=== PATIENT | male | born 1950 | race Caucasian/White ===

== ENCOUNTER → 2016-10-04 | Outpatient (CLI) | payer BC ==
[~2016-10-04] MED LIST: ALL300 PO; CLB/200 PO; DICL1GEL28 TOP; LISI-461 PO; METR0.7527 TOP
[2016-10-04 13:51] VITALS: BP 151/95; PULSE 88; TEMP 36.9; O2SAT 96
--- NOTE | 2016-10-04 16:42 | Radiation Oncology Follow-Up ---
Radiation Oncology Follow-Up Date of Visit Oct 04, 2016. Reason For Visit Mr. Tapia returns for regularly scheduled annual follow-up visit following seed implantation as monotherapy for his low risk prostate cancer. Radiation Completion Date seed implant as monotherapy on 03-11-2014 History of Present Illness Mr. Tapia is a 65-year-old male who presented with a bump in his prostate- specific antigen up to 5.4. Ultrasound-guided biopsies on 10/21/2013 confirmed an adenocarcinoma the prostate Empire grade 3+3 in all core biopsies taken. The patient at that time discussed all treatment options including surgery and radiation. Ultimately he opted to proceed with a transperineal prostate brachytherapy with real-time planning. This was performed on 03/11/2014. A total of 19 needles were used and 61 Cesium 131 seeds implanted for a dose of 115 Gy. The patient was seen for a one-month follow-up and was doing well with an excellent AUA the range of 3-5. His prostate-specific antigen responded and was 1.5 on 06/30/2014, 0.642 on 12/15/2014, 0.3821 10/01/2015. He is been doing well over this past year. He had steady improvement in his urinary status. His AUA score was 2. He completed expanded prostate cancer index composite for clinical practice and gave a score of 0 of 12 in urinary incontinence symptoms. He gave a score of 0 of 12 in urinary irritation symptoms. He gave a score of 0 of 12 and bowel symptoms. He gave a score of one of 12 and sexual symptoms. He gave a score of 0 of 12 in hormonal vitality symptoms. His total was 1 of 60. Interim History Since his last visit on 10/01/2015 the patient is continued to do well. His urination remains excellent with an AUA score of 3. He also completed EPIC-CP and received an overall prostate cancer quality of life score of 3 out of 60. Patient did have a repeat colonoscopy this summer as routine surveillance. Unfortunately he had post-procedure complications that required additional follow-up. Polyps removed on 03/17/2016 were tubular adenomas with no malignancy. Case: [id number]. The patient's bowels have also been moving well since then with no significant diarrhea or constipation and no episodes of rectal bleeding. Allergies Coded Allergies: Ciprofloxacin (Verified Allergy, Unknown, stomach sickness, diarrhea, ) Home Medications Scheduled Allopurinol (Allopurinol), 1 TAB PO QAM Celecoxib (CeleBREX), 200 MG PO AFTERNOON Lisinopril (Zestril), 10 MG PO QAM Metronidazole (Topical) (Metrogel), 1 APPLN TOP HS Scheduled PRN Diclofenac Sod (Voltaren 1% Top Gel), 1 APPLN TOP DAILY PRN for Mild Pain Review of Systems Gastrointestinal: Symptoms: WNL Oral: Symptoms: No Problems Respiratory: Symptoms: WNL Urinary: Symptoms: Nocturia Comments: ncoturia 1 - 2 times Skin: Symptoms: No Problems Physical Exam Vital Signs Date Time Temp Pulse Resp B/P Pulse Ox O2 Delivery O2 Flow Rate FiO2 10/04/16 13:51 36.9 88 20 151/95 96 Pain: Side: Bilateral Patient Pain Scale: 0 - 10 Initial Pain Intensity: 0.0 Fatigue: None General Appearance: WD/WN, no apparent distress Eyes: normal inspection ENT: normal ENT inspection, pharynx normal Neck: supple, no adenopathy Respiratory/Chest: chest non-tender, lungs clear, normal breath sounds Cardiovascular: regular rate, rhythm, no murmur Abdomen: non tender, soft, no organomegaly Anal / Rectum: On digital rectal exam there was no induration or nodularity. There was no rectal mucosal abnormalities appreciated. There was no blood on the examining finger. 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, no motor/sensory deficits, alert, normal mood/affect, oriented x 3 Skin: normal color Lymphatic: no adenopathy Laboratory Studies Test 09/06/16 12:22 10/04/16 14:24 White Blood Count 6.47 K/uL (4.8-10.8) Red Blood Count 4.10 M/uL (4.7-6.1) Hemoglobin 13.1 g/dL (14.0-18.0) Hematocrit 38.6 % (42-52) Mean Corpuscular Volume 94.1 fL (80-100) Mean Corpuscular Hemoglobin 32.0 pg (25-34) Mean Corpuscular Hemoglobin Concent 33.9 g/dl (32-36) Platelet Count 282 K/uL (130-400) Mean Platelet Volume 10.5 fL (7.4-10.4) Neutrophils (%) (Auto) 64.0 % Lymphocytes (%) (Auto) 18.5 % Monocytes (%) (Auto) 11.9 % Eosinophils (%) (Auto) 4.5 % Basophils (%) (Auto) 0.9 % Neutrophils # (Auto) 4.14 K/uL (1.4-6.5) Lymphocytes # (Auto) 1.20 K/uL (1.2-3.4) Monocytes # (Auto) 0.77 K/uL (0.11-0.59) Eosinophils # (Auto) 0.29 K/uL (0-0.5) Basophils # (Auto) 0.06 K/uL (0-0.2) RDW Standard Deviation 46.2 fL (36.4-46.3) RDW Coefficient of Variation 13.4 % (11.5-14.5) Immature Granulocyte % (Auto) 0.2 % Immature Granulocyte # (Auto) 0.01 K/uL (0.00-0.02) Absolute Reticulocyte Count 0.05 10^6/uL (0.02-0.10) Percent Reticulocyte Count 1.3 % (0.5-2.0) Sodium Level 140 mmol/L (136-145) Potassium Level 4.2 mmol/L (3.5-5.1) Chloride Level 106 mmol/L (98-107) Carbon Dioxide Level 26 mmol/L (21-32) Anion Gap 8.0 mmol/L (3-11) Blood Urea Nitrogen 16 mg/dl (7-18) Creatinine 0.96 mg/dl (0.60-1.40) Estimated GFR () 97.1 Estimated GFR (Non- 83.8 BUN/Creatinine Ratio 17.0 (10-20) Random Glucose 92 mg/dl (70-99) Calcium Level 8.9 mg/dl (8.5-10.1) Iron Level 103 mcg/dl (35-175) Total Iron Binding Capacity 250 mcg/dl (250-450) Transferrin 201 mg/dl (200-360) Transferrin % Saturation 37 % (20-50) Ferritin 493.2 ng/ml (8.0-388.0) Total Bilirubin 0.6 mg/dl (0.2-1) Aspartate Amino Transferase (AST) 36 U/L (15-37) Alanine Aminotransferase (ALT) 26 U/L (12-78) Alkaline Phosphatase 76 U/L (45-117) Total Protein 7.4 gm/dl (6.4-8.2) Albumin 3.6 gm/dl (3.4-5.0) Globulin 3.8 gm/dl (2.5-4.0) Albumin/Globulin Ratio 0.9 (0.9-2) Triglycerides Level 170 mg/dl (0-150) Cholesterol Level 145 mg/dl (0-200) HDL Cholesterol 65 mg/dl LDL Cholesterol, Calculated 46 mg/dl VLDL Cholesterol, Calculated 34 mg/dl Cholesterol/HDL Ratio 2.2 Vitamin B12 Level 408 pg/mL (211-911) Hepatitis C Antibody NEG (NEG) Prostate Specific Antigen 0.200 ng/ml (0.000-4.000) Additional Studies His prostate-specific antigen drawn today prior to his examination showed continued excellent response at 0.200 ng per mL. Assessment & Plan Mr. Tapia was treated with prostate seed implant as monotherapy for a low risk prostate cancer on 03/11/2014. Since that time he has done extremely well with very favorable AUA scores. He has had no bowel complaints and his prostate -specific antigen is continue to decrease. His most recent prostate-specific antigen drawn today was 0.2. Patient will continue to be followed on an annual basis with us with repeat prostate-specific antigens. Total Time In Follow-Up I spent 15 minutes in discussion and examination of this patient, 10 minutes reviewing his lab work and preparation of this document. Copy To Valerio Colunga MD; Blanca Shanks DO
== END | disposition home or self-care (01) ==
LOC: C.ONC 13:35
PROVIDERS: ATTEND Radiology Radiation Oncology
DX: Z08 Encounter for follow-up examination after completed treatment for malignant neoplasm (principal); Z92.3 Personal history of irradiation; Z85.46 Personal history of malignant neoplasm of prostate

== ENCOUNTER → 2017-05-17 | Outpatient (CLI) | payer BC ==
[2017-05-17 15:44] LABS: BASO % 0.4 %; BASO ABS # 0.04 K/uL (0-0.2); COMPLETE YES; EOS % 2.3 %; HEMATOCRIT 37.6 % (42-52); IG% 0.2 %; LYMPH % 10.2 %; LYMPH ABS # 0.93 K/uL (1.2-3.4); MEAN CELL VOLUME 96.2 fL (80-100); MEAN CORPUSCULAR HEMOGLOBIN 32.2 pg (25-34); MEAN CORPUSCULAR HGB CONC 33.5 g/dl (32-36); MONO % 7.2 %; NEUT % 79.7 %; PLATELET COUNT 296 K/uL (130-400); RED BLOOD COUNT 3.91 M/uL (4.7-6.1); WHITE BLOOD COUNT 9.13 K/uL (4.8-10.8)
[2017-05-17 16:09] LABS: ALT/SGPT 24 U/L (12-78); BLOOD UREA NITROGEN 16 mg/dl (7-18); BUN/CREATININE RATIO 14.3 (10-20); CARBON DIOXIDE 29 mmol/L (21-32); CHLORIDE 103 mmol/L (98-107); CHOLESTEROL 141 mg/dl (0-200); GLUCOSE 105 mg/dl (70-99); POTASSIUM 4.3 mmol/L (3.5-5.1); SODIUM 136 mmol/L (136-145); TRIGLYCERIDES 142 mg/dl (0-150); VERY LOW DENSITY LIPOPROT CALC 28 mg/dl
[2017-05-17 16:11] LABS: ALKALINE PHOSPHATASE 78 U/L (45-117); AST/SGOT 36 U/L (15-37); CHOLESTEROL/HDL RATIO 1.8; HDL CHOLESTEROL 78 mg/dl; LDL CHOLESTEROL CALCULATED 35 mg/dl
== END | disposition home or self-care (01) ==
LOC: C.LAB1850 14:22
PROVIDERS: ATTEND Family Medicine
DX: E78.1 Pure hyperglyceridemia (principal); I10 Essential (primary) hypertension; D53.9 Nutritional anemia, unspecified; M11.20 Other chondrocalcinosis, unspecified site

== ENCOUNTER → 2017-10-05 | Outpatient (CLI) | payer BC ==
[2017-10-05 14:11] VITALS: BP 150/87; PULSE 84; TEMP 36.9; O2SAT 96
--- NOTE | 2017-10-05 15:31 | Radiation Oncology Follow-Up ---
Radiation Oncology Follow-Up Date of Visit Oct 05, 2017. Reason For Visit Annual follow-up Radiation Completion Date Seed Implant - Monotherapy 03/11/14 Diagnosis (1) Prostate cancer Status: Resolved Onset Date: 10/21/2013 Permanent Comment: Rising PSA, pretreatment PSA 5.4 Status post ultrasound-guided biopsies revealing adenocarcinoma the prostate Yaw 3+3, biopsy stage T2c Status post prostate seed implant as monotherapy with cesium 131 on 03/11/2014. 66 seeds were placed Last Edited By: Samantha Gill on Oct 01, 2015 15:01 History of Present Illness Mr. Tapia was noted to have a bump in his prostate-specific antigen up to 5.4. Ultrasound-guided biopsies on 10/21/2013 confirmed an adenocarcinoma the prostate Y[place] grade 3+3 in all core biopsies taken. The patient at that time discussed all treatment options including surgery and radiation. Ultimately he opted to proceed with a transperineal prostate brachytherapy with real-time planning. This was performed on 03/11/2014. A total of 19 needles were used and 61 Cesium 131 seeds implanted for a dose of 115 Gy. His prostate-specific antigen responded and was 1.5 on 06/30/2014, 0.642 on 2014, 0.3821 10/01/2015. Interim History He's been doing well this past year. He has had recheck PSAs. His PSA 2015 was 0.382. A PSA 10/04/2016 was 0.200. His AUA score was excellent at 2. He does not require the use of any medication to help with urination. He completed expanded prostate cancer index composite for clinical practice and gave a score of 0 of 12 and urinary incontinence symptoms. He gave a score of one of 12 urinary irritation symptoms. He gave a score 1 of 12 in bowel symptoms. He gave a score of 2 of 12 in sexual symptoms. He gave a score of 0 of 12 in hormonal vitality symptoms. His total was 3 of 60. Allergies Coded Allergies: Ciprofloxacin (Verified Allergy, Unknown, stomach sickness, diarrhea, ) Home Medications Scheduled Allopurinol (Allopurinol), 1 TAB PO QAM Celecoxib (CeleBREX), 200 MG PO AFTERNOON Lisinopril (Zestril), 10 MG PO QAM Metronidazole (Topical) (Metrogel), 1 APPLN TOP HS Scheduled PRN Diclofenac Sod (Voltaren 1% Top Gel), 1 APPLN TOP DAILY PRN for Mild Pain Review of Systems Gastrointestinal: Symptoms: WNL Oral: Symptoms: No Problems Respiratory: Symptoms: WNL Urinary: Symptoms: WNL, Nocturia Comments: Nocturia x 1-2, See AUA & EPIC Skin: Symptoms: No Problems Physical Exam Vital Signs Date Time Temp Pulse Resp B/P (MAP) Pulse Ox O2 Delivery O2 Flow Rate FiO2 10/05/17 14:11 36.9 84 16 150/87 96 Fatigue: None General Appearance: no apparent distress Eyes: normal inspection, EOMI ENT: normal ENT inspection, hearing grossly normal Respiratory/Chest: lungs clear, no respiratory distress, no accessory muscle use Cardiovascular: regular rate, rhythm, no gallop, no murmur Abdomen: non tender, soft, no organomegaly Anal / Rectum: Normal sphincter tone. External and internal hemorrhoids. No rectal masses and no rectal bleeding. Extremities: no pedal edema Neurologic/Psychiatric: no motor/sensory deficits, alert, normal mood/affect Pain Management Patient Reports Pain: No Pain Management Plan He denied pain therefore requires no pain management. Laboratory Laboratory Results: were reviewed Laboratory Comments: Test 10/05/17 14:29 Prostate Specific Antigen 0.155 ng/ml (0.000-4.000) Pathology Pathology Results: not applicable Imaging Imaging Studies: not applicable Assessment & Plan He'll continue regular follow-up with his primary care physician. He has not followed up with urology in the past year. I reviewed alternating visits with our office in urology. He plans to have follow-ups with his primary care and our office. He may call our office if he has any questions or concerns. Total Time In Follow-Up I spent 20 minutes speaking to the patient performing examination. I spent 15 minutes reviewing information in completing this note. Copy To Blanca Shanks DO
== END | disposition home or self-care (01) ==
LOC: C.ONC 13:15
PROVIDERS: ATTEND Physician Assistant Medical
DX: Z08 Encounter for follow-up examination after completed treatment for malignant neoplasm (principal); Z92.3 Personal history of irradiation; Z85.46 Personal history of malignant neoplasm of prostate

== ENCOUNTER 2018-02-03 10:46 | Emergency (ER) | payer BC ==
[~2018-02-03] VITALS: Ht 168.9 cm; Wt 62.0 kg
[2018-02-03 11:00] VITALS: TEMP 36.8; Ht 168.9 cm; Wt 62.0 kg
[2018-02-03] MEDS ORDERED: ONDANSETRON INJ 2 MG/ML 2 ML VIAL IV STA (11:12)
[2018-02-03] MEDS ORDERED: SODIUM CHLORIDE 0.9% 1000ML 1,000 ML IV STA (11:12)
--- NOTE | 2018-02-03 11:15 | EMERGENCY ROOM VISIT NOTE ---
History Report prepared by Ambika: Bruna Ferrera Under the Supervision of: Dr. Jason Alexander M.D. First contact with patient: 11:08 Chief Complaint: FALL Stated Complaint: FALL, LEFT SIDE PAIN History of Present Illness The patient is a 67 year old male who presents to the Emergency Room with complaints of a fall beginning at 0030 last night. He does not remember how he fell but he notes he was drinking last night after playing golf. He is accompanied by his who reports that he fell around 0030 and he needed assistance getting up. His reports he vomited last night and the patient states he also vomited again this morning. The patient states he drinks alcohol and typically has a couple of beers every night. He has associated left sided abdominal pain. He is currently not taking any blood thinning medications. Source of History: patient, spouse/significant other () Onset: 0030 last night Position: head, other (upper and lower extremities) Quality: other (fall) Modifying Factors (Worsening): other (alcohol) Associated Symptoms: + vomiting, + abdominal pain (left sided) Review of Systems See HPI for pertinent positives and negatives. A total of ten systems were reviewed and were otherwise negative. Past Medical & Surgical Medical Problems: (1) Prostate cancer Family History Diabetes mellitus Social History Smoking Status: Never Smoker Alcohol Use: occasionally Marital Status: Housing Status: lives with family Current/Historical Medications Scheduled Allopurinol (Zyloprim), 300 MG PO DAILY Celecoxib (CeleBREX), 200 MG PO AFTERNOON Lisinopril (Zestril), 10 MG PO QAM Metronidazole (Topical) (Metrogel), 1 APPLN TOP HS Omeprazole (Prilosec), 1 CAP PO DAILY Scheduled PRN Acetaminophen/Codeine (Tylenol W/Codeine #3), 1 TABS PO TID PRN for Pain Diclofenac Sodium (Topical) (Voltaren 1% Top Gel), 1 APPLN TOP DAILY PRN for Pain Allergies Coded Allergies: Ciprofloxacin (Verified Allergy, Unknown, stomach sickness, diarrhea, 02/03) Physical Exam Vital Signs Date Time Temp Pulse Resp B/P (MAP) Pulse Ox O2 Delivery O2 Flow Rate FiO2 02/03/18 14:13 96 18 134/78 94 Room Air 02/03/18 12:48 102 18 142/83 94 Room Air 02/03/18 11:00 36.8 97 20 128/79 96 Room Air Physical Exam Physical Exam GENERAL: He is oriented to person, place, and time. He appears well-developed and well-nourished. He does not appear distressed. ____ HENT: Exam performed. Head: Normocephalic and atraumatic. Right Ear: External ear normal. No mastoid tenderness. Left Ear: External ear normal. No mastoid tenderness. Mouth/Throat: The oropharynx is clear and moist. No trismus in the jaw. No dental abscesses or uvula swelling. No oropharyngeal exudate or tonsillar abscesses. ____ EYES: Conjunctivae and EOM are normal. Pupils are equal, round, and reactive to light. Right eye exhibits no discharge. Left eye exhibits no discharge. No scleral icterus. ____ NECK: Normal range of motion. Neck supple. No JVD present. No spinous process tenderness present. No carotid bruit present. No rigidity. No tracheal deviation and normal range of motion present. No Brudzinski's sign and no Kernig 's sign noted. ____ CV: Normal rate, regular rhythm, normal heart sounds and intact distal pulses. There is no peripheral edema. Palpable radial pulses bue. ____ PULM/CHEST: Effort normal and breath sounds normal. No respiratory distress. No stridor. He has no wheezes. He has no rales. Chest Wall: Pain on palpation of left lateral inferior ribs. No crepitus ABD: The abdomen is soft. Bowel sounds are normal. He has no distension. No mass is present. There is no tenderness. There is no rebound, no guarding, no Kevin's sign and no tenderness at McBurney's point. Rovsig negative MUSC/SKEL: Pain on palpation of left pelvis. LYMPH: No cervical adenopathy. ____ NEURO: He is alert and oriented to person, place, and time. He has normal strength. No cranial nerve deficit or sensory deficit. Coordination and gait normal. GCS eye subscore is 4. GCS verbal subscore is 5. GCS motor subscore is 6. Cerebellar tests wnl. ____ SKIN: Skin is warm and dry. He is not diaphoretic. ____ PSYCH: He has a normal mood and affect. His behavior is normal. Judgment and thought content normal. ____ Medical Decision & Procedures ER Provider Diagnostic Interpretation: Radiology results as stated below per my review and radiologist interpretation: ADDENDUM The cervical spine CT was attached to the left hip plain films. CERVICAL SPINE CT HISTORY: Fall. Neck pain. TECHNIQUE: Multiaxial CT images of the cervical spine were performed and reformatted in the sagittal and coronal plane. COMPARISON: Cervical spine MRI 09/10/2007. FINDINGS: No fractures within the cervical spine. The C1-C2 interval and prevertebral soft tissues are maintained. Moderate to severe degenerative disc disease from C3 through C7. There is 2 mm of retrolisthesis of C5 on C6 and C6 on C7. There is 2 mm of anterolisthesis of C3 on C4. This is similar to the prior study. No pneumothorax. IMPRESSION: No fractures within the cervical spine. Chronic changes as described above. Electronically signed by: Henry Cesar M.D. 02/03/2018 12:58 PM Dictated Date/Time: 02/03/2018 12:52 PM ORIGINAL REPORT PELVIS 1 OR 2 VIEW ROUTINE, L HIP UNILATERAL 2 VIEWS, CERVICAL SPINE W/O, L FEMUR 2 VIEWS ROUTINE CLINICAL HISTORY: fall. Pelvic pain. Left hip pain. COMPARISON STUDY: None. FINDINGS: Partial visualized lumbar spinal fusion hardware. No fracture or dislocation within the pelvis, hips, left femur. Mild osteoarthritis within the bilateral hips. Multiple radiation seeds overlying the prostate gland. Soft tissues are unremarkable. IMPRESSION: No fractures identified within the pelvis, hips, or left femur. Electronically signed by: Henry Cesar M.D. 02/03/2018 12:[address] CT DOSE: HISTORY: Fall. Vomiting. TECHNIQUE: Multiaxial CT images of the head were performed without the use of intravenous contrast. Automated exposure control was utilized for this study. A dose lowering technique was utilized adhering to the principles of ALARA. Comparison: None. Findings: The paranasal sinuses and mastoid air cells are clear. The calvarium and skull base are intact. The ventricles and sulci are within normal limits. There is no mass, hematoma, midline shift, or acute infarct. Mild left lateral scalp swelling. Impression: No acute intracranial abnormality. Electronically signed by: Henry Cesar M.D. 02/03/2018 12:44 PM CHEST 2 VIEWS ROUTINE HISTORY: Fall. Left-sided chest pain. COMPARISON: Chest 03/17/2016. FINDINGS: Old, healed left lateral seventh rib fracture. This remains unchanged. No pneumothorax. No pleural effusions. Mild chronic interstitial thickening. The heart is normal in size. Left lingular linear densities favor subsegmental atelectasis or scarring. IMPRESSION: No acute process. Electronically signed by: Henry Cesar M.D. 02/03/2018 1:00 PM [address]EN AND PELVIS CT WITH IV CONTRAST CT DOSE: HISTORY: Fall. Left upper quadrant pain. TECHNIQUE: Multiaxial CT images of the abdomen and pelvis were performed following the use of intravenous contrast. A dose lowering technique was utilized adhering to the principles of ALARA. COMPARISON STUDY: None. FINDINGS: Mild interstitial thickening at the lung bases which is likely chronic. Calcified granuloma within the left lower lobe. Linear density at the lingula favors subsegmental atelectasis or scarring. No pneumoperitoneum. No pneumatosis. Posterior decompression fusion within the mid lumbar spine. Nondisplaced left anterolateral eighth and ninth rib fractures. Small hiatus hernia. Mild thickening within the distal esophagus. Tiny fat-containing umbilical hernia. Tiny fat-containing right inguinal hernia. Small soft tissue contusion within the left lateral hip. Multiple radiation seeds within the sacrum. Normal bladder. Slightly nodular contour to the liver consistent with cirrhosis. The gallbladder, pancreas, kidneys, and spleen are unremarkable. Normal adrenal glands. Small splenule adjacent to the lower aspect of the spleen. Small low-density peripancreatic lymph nodes are noted. No bowel wall thickening or obstruction. Normal appendix. Colonic diverticulosis. IMPRESSION: 1. Nondisplaced left anterolateral eighth and ninth rib fractures. 2. Mild cirrhosis. 3. Colonic diverticulosis. 4. No bowel wall thickening or obstruction. 5. Mild thickening of the distal esophagus and a small hiatus hernia. 6. Additional findings as described above. Electronically signed by: Henry Cesar M.D. 02/03/2018 12:52 PM Laboratory Results 02/03/18 11:31 Red Blood Count 4.44, Mean Corpuscular Volume 93.9, Mean Corpuscular Hemoglobin 32.2, Mean Corpuscular Hemoglobin Concent 34.3, Mean Platelet Volume 10.0, Neutrophils (%) (Auto) 85.2, Lymphocytes (%) (Auto) 5.9, Monocytes (%) (Auto) 8.0, Eosinophils (%) (Auto) 0.3, Basophils (%) (Auto) 0.3, Neutrophils # (Auto) 9.75, Lymphocytes # (Auto) 0.67, Monocytes # (Auto) 0.91, Eosinophils # (Auto) 0.04, Basophils # (Auto) 0.03 02/03/18 11:31 Test 02/03/18 11:31 White Blood Count 11.43 K/uL (4.8-10.8) Red Blood Count 4.44 M/uL (4.7-6.1) Hemoglobin 14.3 g/dL (14.0-18.0) Hematocrit 41.7 % (42-52) Mean Corpuscular Volume 93.9 fL (80-100) Mean Corpuscular Hemoglobin 32.2 pg (25-34) Mean Corpuscular Hemoglobin Concent 34.3 g/dl (32-36) Platelet Count 262 K/uL (130-400) Mean Platelet Volume 10.0 fL (7.4-10.4) Neutrophils (%) (Auto) 85.2 % Lymphocytes (%) (Auto) 5.9 % Monocytes (%) (Auto) 8.0 % Eosinophils (%) (Auto) 0.3 % Basophils (%) (Auto) 0.3 % Neutrophils # (Auto) 9.75 K/uL (1.4-6.5) Lymphocytes # (Auto) 0.67 K/uL (1.2-3.4) Monocytes # (Auto) 0.91 K/uL (0.11-0.59) Eosinophils # (Auto) 0.04 K/uL (0-0.5) Basophils # (Auto) 0.03 K/uL (0-0.2) RDW Standard Deviation 47.8 fL (36.4-46.3) RDW Coefficient of Variation 14.0 % (11.5-14.5) Immature Granulocyte % (Auto) 0.3 % Immature Granulocyte # (Auto) 0.03 K/uL (0.00-0.02) Prothrombin Time 10.0 SECONDS (9.0-12.0) Prothromb Time International Ratio 1.0 (0.9-1.1) Activated Partial Thromboplast Time 24.8 SECONDS (21.0-31.0) Partial Thromboplastin Ratio 1.0 Anion Gap 8.0 mmol/L (3-11) Est Creatinine Clear Calc Drug Dose 58.2 ml/min Estimated GFR () 80.3 Estimated GFR (Non- 69.3 BUN/Creatinine Ratio 12.9 (10-20) Calcium Level 10.1 mg/dl (8.5-10.1) Total Bilirubin 1.4 mg/dl (0.2-1) Direct Bilirubin 0.3 mg/dl (0-0.2) Aspartate Amino Transf (AST/SGOT) 30 U/L (15-37) Alanine Aminotransferase (ALT/SGPT) 23 U/L (12-78) Alkaline Phosphatase 89 U/L (45-117) Total Protein 8.0 gm/dl (6.4-8.2) Albumin 3.8 gm/dl (3.4-5.0) Lipase 77 U/L (73-393) Laboratory results reviewed by me Medications Administered Medications (Trade) Dose Ordered Sig/Susie Route Start Time Stop Time Status Last Admin Dose Admin Sodium Chloride 1,000 ml @ 999 mls/hr Q1H1M STAT IV 02/03/18 11:12 02/03/18 12:12 DC 02/03/18 11:36 999 MLS/HR Ondansetron HCl (Zofran Inj) 4 mg NOW STAT IV 02/03/18 11:12 02/03/18 11:16 DC 02/03/18 11:36 4 MG ED Course 1110: The patient was evaluated in room C9. A complete history and physical exam was performed. 1112: Ordered Zofran Inj 4 mg IV, Sodium Chloride 1000 ml @ 999 mls/hr IV 1420: Vital signs stable. No vomiting in the emergency department. CT of the head C-spine are within normal limits, no traumatic injury. CT of the abdomen shows show left sided inferior ribs fractures. No pneumothorax. X-rays show no acute fractures. Labs are within normal limits with the exception of a total and direct bilirubin of 1.4 and 0.3 respectively, these are thought to be chronic and not related to the patient's acute fall. Patient is ambulating with assistance. Given the patient's acute rib fractures, will be discharged with analgesia as well as incentive spirometer. I PDMPed the patient at this time/ No issues were identified. DISCHARGE - Plan of care discussed with patient and questions answered. The patient was given both verbal and printed discharge instructions. The patient verbalized understanding and ability to comply. The patient is to seek outpatient follow up as noted in the discharge instructions. The patient verbalized understanding and ability to comply. The patient is discharged in stable condition. The patient was instructed to return for worsening symptoms. Medical Decision Vital signs stable. No vomiting in the emergency department. CT of the head C- spine are within normal limits, no traumatic injury. CT of the abdomen shows show left sided inferior ribs fractures. No pneumothorax. X-rays show no acute fractures. Labs are within normal limits with the exception of a total and direct bilirubin of 1.4 and 0.3 respectively, these are thought to be chronic and not related to the patient's acute fall. Patient is ambulating with assistance. Given the patient's acute rib fractures, will be discharged with analgesia as well as incentive spirometer. I PDMPed the patient at this time/ No issues were identified. DISCHARGE - Plan of care discussed with patient and questions answered. The patient was given both verbal and printed discharge instructions. The patient verbalized understanding and ability to comply. The patient is to seek outpatient follow up as noted in the discharge instructions. The patient verbalized understanding and ability to comply. The patient is discharged in stable condition. The patient was instructed to return for worsening symptoms. [place] Drug Monitoring Program Search Results: patient reviewed within database, no issues identified Medication Reconcilliation Current Medication List: was personally reviewed by me Blood Pressure Screening Patient's blood pressure: Normal blood pressure Blood pressure disposition: Did not require urgent referral Impression Primary Impression: Fall Additional Impressions: Closed rib fracture Alcohol abuse Scribe Attestation The scribe's documentation has been prepared under my direction and personally reviewed by me in its entirety. I confirm that the note above accurately reflects all work, treatment, procedures, and medical decision making performed by me. The chart was completed utilizing [employer] voice recognition software. Grammatical errors, random word insertions, pronoun errors, and incomplete sentences are an occasional consequence of this system due to software limitations, ambient noise, and hardware issues. Any formal questions or concerns about the content, text, or information contained within the body of this dictation should be directly addressed to the physician for clarification. Departure Information Dispostion Home / Self-Care Prescriptions Acetaminophen/Codeine (Tylenol W/Codeine #3) 300 Mg/30 Mg Tab 1 TABS PO TID Y for Pain, #14 TAB Prov: Jason Alexander M.D. 02/03/18 Referrals Blanca Shanks DO (PCP) Forms HOME CARE DOCUMENTATION FORM, IMPORTANT VISIT INFORMATION Patient Instructions [facility] Additional Instructions Return to emergency department if you develop recurrent falls, increased vomiting or vomiting or blood, urinary incontinence, blood in your urine, fever greater than 100.4, difficulty breathing, cough up blood, or your symptoms worsen. Problem Qualifiers Primary Impression: Fall Encounter type: initial encounter Qualified Codes: W19.XXXA - Unspecified fall, initial encounter Additional Impressions: Closed rib fracture Encounter type: initial encounter Rib fracture type: multiple ribs Laterality: left Qualified Codes: S22.42XA - Multiple fractures of ribs, left side, initial encounter for closed fracture
[2018-02-03] MEDS ORDERED: OPTIRAY 320 IV PRN (11:30)
[2018-02-03 11:45] LABS: BASO % 0.3 %; BASO ABS # 0.03 K/uL (0-0.2); EOS % 0.3 %; EOS ABS # 0.04 K/uL (0-0.5); HEMATOCRIT 41.7 % (42-52); HEMOGLOBIN 14.3 g/dL (14.0-18.0); IG# 0.03 K/uL (0.00-0.02); LYMPH % 5.9 %; LYMPH ABS # 0.67 K/uL (1.2-3.4); MEAN CELL VOLUME 93.9 fL (80-100); MEAN CORPUSCULAR HEMOGLOBIN 32.2 pg (25-34); MEAN CORPUSCULAR HGB CONC 34.3 g/dl (32-36); MONO ABS # 0.91 K/uL (0.11-0.59); NEUT % 85.2 %; NEUT ABS # 9.75 K/uL (1.4-6.5); PLATELET COUNT 262 K/uL (130-400); RED CELL DISTRIBUTION WIDTH SD 47.8 fL (36.4-46.3); WHITE BLOOD COUNT 11.43 K/uL (4.8-10.8)
[2018-02-03 12:00] LABS: PTT PATIENT 24.8 SECONDS (21.0-31.0)
[2018-02-03 12:05] LABS: ALBUMIN 3.8 gm/dl (3.4-5.0); CALCIUM 10.1 mg/dl (8.5-10.1); CREATININE 1.11 mg/dl (0.60-1.40); POTASSIUM 4.5 mmol/L (3.5-5.1)
--- NOTE | 2018-02-03 12:39 | DIAGNOSTIC IMAGING REPORT ---
ADDENDUM The cervical spine CT was attached to the left hip plain films. CERVICAL SPINE CT HISTORY: Fall. Neck pain. TECHNIQUE: Multiaxial CT images of the cervical spine were performed and reformatted in the sagittal and coronal plane. COMPARISON: Cervical spine MRI 09/10/2007. FINDINGS: No fractures within the cervical spine. The C1-C2 interval and prevertebral soft tissues are maintained. Moderate to severe degenerative disc disease from C3 through C7. There is 2 mm of retrolisthesis of C5 on C6 and C6 on C7. There is 2 mm of anterolisthesis of C3 on C4. This is similar to the prior study. No pneumothorax. IMPRESSION: No fractures within the cervical spine. Chronic changes as described above. Electronically signed by: Henry Cesar M.D. 02/03/2018 12:58 PM Dictated Date/Time: 02/03/2018 12:52 PM ORIGINAL REPORT PELVIS 1 OR 2 VIEW ROUTINE, L HIP UNILATERAL 2 VIEWS, CERVICAL SPINE W/O, L FEMUR 2 VIEWS ROUTINE CLINICAL HISTORY: fall. Pelvic pain. Left hip pain. COMPARISON STUDY: None. FINDINGS: Partial visualized lumbar spinal fusion hardware. No fracture or dislocation within the pelvis, hips, left femur. Mild osteoarthritis within the bilateral hips. Multiple radiation seeds overlying the prostate gland. Soft tissues are unremarkable. IMPRESSION: No fractures identified within the pelvis, hips, or left femur. Electronically signed by: Henry Cesar M.D. 02/03/2018 12:34 PM Dictated Date/Time: 02/03/2018 12:31 PM
--- NOTE | 2018-02-03 12:45 | DIAGNOSTIC IMAGING REPORT ---
HEAD CT NONCONTRAST CT DOSE: HISTORY: Fall. Vomiting. TECHNIQUE: Multiaxial CT images of the head were performed without the use of intravenous contrast. Automated exposure control was utilized for this study. A dose lowering technique was utilized adhering to the principles of ALARA. Comparison: None. Findings: The paranasal sinuses and mastoid air cells are clear. The calvarium and skull base are intact. The ventricles and sulci are within normal limits. There is no mass, hematoma, midline shift, or acute infarct. Mild left lateral scalp swelling. Impression: No acute intracranial abnormality. Electronically signed by: Henry Cesar M.D. 02/03/2018 12:44 PM Dictated Date/Time: 02/03/2018 12:41 PM
--- NOTE | 2018-02-03 12:53 | DIAGNOSTIC IMAGING REPORT ---
ABDOMEN AND PELVIS CT WITH IV CONTRAST CT DOSE: HISTORY: Fall. Left upper quadrant pain. TECHNIQUE: Multiaxial CT images of the abdomen and pelvis were performed following the use of intravenous contrast. A dose lowering technique was utilized adhering to the principles of ALARA. COMPARISON STUDY: None. FINDINGS: Mild interstitial thickening at the lung bases which is likely chronic. Calcified granuloma within the left lower lobe. Linear density at the lingula favors subsegmental atelectasis or scarring. No pneumoperitoneum. No pneumatosis. Posterior decompression fusion within the mid lumbar spine. Nondisplaced left anterolateral eighth and ninth rib fractures. Small hiatus hernia. Mild thickening within the distal esophagus. Tiny fat-containing umbilical hernia. Tiny fat-containing right inguinal hernia. Small soft tissue contusion within the left lateral hip. Multiple radiation seeds within the sacrum. Normal bladder. Slightly nodular contour to the liver consistent with cirrhosis. The gallbladder, pancreas, kidneys, and spleen are unremarkable. Normal adrenal glands. Small splenule adjacent to the lower aspect of the spleen. Small low-density peripancreatic lymph nodes are noted. No bowel wall thickening or obstruction. Normal appendix. Colonic diverticulosis. IMPRESSION: 1. Nondisplaced left anterolateral eighth and ninth rib fractures. 2. Mild cirrhosis. 3. Colonic diverticulosis. 4. No bowel wall thickening or obstruction. 5. Mild thickening of the distal esophagus and a small hiatus hernia. 6. Additional findings as described above. Electronically signed by: Henry Cesar M.D. 02/03/2018 12:52 PM Dictated Date/Time: 02/03/2018 12:44 PM
--- NOTE | 2018-02-03 13:01 | DIAGNOSTIC IMAGING REPORT ---
CHEST 2 VIEWS ROUTINE HISTORY: Fall. Left-sided chest pain. COMPARISON: Chest 03/17/2016. FINDINGS: Old, healed left lateral seventh rib fracture. This remains unchanged. No pneumothorax. No pleural effusions. Mild chronic interstitial thickening. The heart is normal in size. Left lingular linear densities favor subsegmental atelectasis or scarring. IMPRESSION: No acute process. Electronically signed by: Henry Cesar M.D. 02/03/2018 1:00 PM Dictated Date/Time: 02/03/2018 12:58 PM
[2018-02-03] MEDS ORDERED: ALLO300T2 PO (13:03)
[2018-02-03] MEDS ORDERED: OMEP20CA9 PO (13:03)
[2018-02-03] MEDS ORDERED: DICL1GEL12 TOP (13:03)
[2018-02-03 14:13] VITALS: BP 134/78; PULSE 96; O2SAT 94
[2018-02-03] MEDS ORDERED: ACET300T3 PO (14:25)
== END 2018-02-03 14:43 | disposition home or self-care (01) ==
LOC: C.EDB 10:47 → C.EDC 14:43
DX: S22.42XA Multiple fractures of ribs, left side, initial encounter for closed fracture (principal); W19.XXXA Unspecified fall, initial encounter; F10.129 Alcohol abuse with intoxication, unspecified; Z85.46 Personal history of malignant neoplasm of prostate; Z79.899 Other long term (current) drug therapy; Z88.1 Allergy status to other antibiotic agents

== ENCOUNTER → 2018-04-27 | Outpatient (CLI) | payer BC ==
[~2018-04-27] MED LIST changes: +ACET300T3 PO; -ALL300 PO; +ALLO300T2 PO; +DICL1GEL12 TOP; -DICL1GEL28 TOP; +OMEP20CA9 PO
[2018-04-27 12:07] LABS: HEMATOCRIT 36.8 % (42-52); HEMOGLOBIN 12.2 g/dL (14.0-18.0); MEAN CELL VOLUME 96.8 fL (80-100); MEAN CORPUSCULAR HEMOGLOBIN 32.1 pg (25-34); MEAN CORPUSCULAR HGB CONC 33.2 g/dl (32-36); MEAN PLATELET VOLUME 10.6 fL (7.4-10.4); PLATELET COUNT 300 K/uL (130-400); RED CELL DISTRIBUTION WIDTH CV 14.1 % (11.5-14.5); RED CELL DISTRIBUTION WIDTH SD 50.2 fL (36.4-46.3); WHITE BLOOD COUNT 6.61 K/uL (4.8-10.8)
[2018-04-27 12:21] LABS: ALBUMIN 3.5 gm/dl (3.4-5.0); ALKALINE PHOSPHATASE 77 U/L (45-117); ALT/SGPT 21 U/L (12-78); AST/SGOT 31 U/L (15-37); BLOOD UREA NITROGEN 21 mg/dl (7-18); CALCIUM 8.7 mg/dl (8.5-10.1); CARBON DIOXIDE 25 mmol/L (21-32); CHOLESTEROL 140 mg/dl (0-200); GLUCOSE 86 mg/dl (70-99); LDL CHOLESTEROL CALCULATED 38 mg/dl; POTASSIUM 4.6 mmol/L (3.5-5.1); SODIUM 138 mmol/L (136-145); URIC ACID 2.5 mg/dl (2.6-7.2)
== END | disposition home or self-care (01) ==
LOC: C.LAB1850 10:41
PROVIDERS: ATTEND Family Medicine
DX: E78.1 Pure hyperglyceridemia (principal); I10 Essential (primary) hypertension; M10.9 Gout, unspecified

== ENCOUNTER 2022-01-26 13:37 | Inpatient (IN) ==
--- NOTE | 2022-01-26 14:45 | History & Physical Report ---
Date of Service January 26, 2022 Assessment & Plan (1) Jaundice: Plan: Mild biliary ductal dilatation on CT MRCP - will consult GI depending on results Consider biopsy as inpatient (2) LENORA (acute kidney injury): Plan: LR @ 80ml/hr Stop lisinopril Note labs have to be ordered BMP and Liver profile so BMP can be run as istat due to hyperbilirubinemia Repeat labs in AM (3) Gout: Plan: Chronic, no acute flare Continue allopurinol at 100mg PO daily due to renal function (4) GERD (gastroesophageal reflux disease): Plan: Switch omeprazole for pantoprazole per hospital formulary (5) Arthritis: Plan: Stop celebrex given liver dysfunction (6) Hypertension: Plan: Stop lisinopril given current hypotension Plan: VTE Prophylaxis - deferred pending further workup Diet - regular after MRCP Disposition - admit to med/tele Admission and Anticipated Discharge Date Admission Date: January 26, 2022 History of Present Illness Chief Complaint: Jaundice, hyperbilirubinemia Primary Care Provider: Blanca Shanks DO Yan Tapia is a 71 year old male with known metastatic cancer diagnosed on January 09 with unknown primary who presents as a direct admission from the cancer care [facility] er due to hyperbilirubinemia. He was discharged for follow up appointment from the ER on January 09. Unfortunately he hasn't had follow up until today [facility]. His reports the skin yellowing has become significantly worse and he has lost about [address] Kennedy discussed with Dr Correia from radiology regarding CT taken on and given some ductal dilatation and possibility of needing a biliary stent recom mended he was directly admitted. He denies any nausea, vomiting, abdominal pain, change in bowels, constipation or diarrhea. Significantly decreased appetite. Feeling very fatigued and generally weak. Allergies Allergy/AdvReac Type Severity Reaction Status Date / Time ciprofloxacin AdvReac Intermediate stomach Verified 01/09/22 15:29 sickness, diarrhea Home Medications Medication Instructions Recorded Confirmed Type diclofenac sodium 1 % topical gel 2 g TOPICAL QID PRN #100 g 08/04/20 01/09/22 Rx (Voltaren) lisinopril 10 mg tablet 10 mg PO QAM #90 tab 08/13/21 01/09/22 Rx sildenafil 100 mg tablet (Viagra) 100 mg PO DAILY PRN #10 tab 08/13/21 01/09/22 Rx allopurinol 300 mg tablet 300 mg PO QAM 01/09/22 01/09/22 History celecoxib 200 mg capsule (Celebrex) 200 mg PO QAM 01/09/22 01/09/22 History omeprazole 20 mg tablet,delayed 20 mg PO QAM 01/09/22 01/09/22 History release Past Med/Surg History Medical History (Updated 01/27/22 @ 07:15 by Shay Hill MD) Arthritis Degenerative disc disease Dyslipidemia Erectile dysfunction GERD (gastroesophageal reflux disease) History of brachytherapy History of prostate cancer History of prostate cancer "Rising PSA, pretreatment PSA 5.4 Status post ultrasound-guided biopsies revealing adenocarcinoma the prostate [place] 3+3, biopsy stage T2c Status post prostate seed implant as monotherapy with cesium 131 on 03/11/2014. 66 seeds were placed" History of squamous cell carcinoma of skin (05/2020) Hx of gout Hypertension Internal hemorrhoids Jaundice Liver cirrhosis PT DENIES Lumbar disc disease Osteoarthritis Rosacea Surgical History Fusion of spine LUMBAR History of carpal tunnel release (06/2021) History of esophagogastroduodenoscopy (EGD) Nausea and vomiting after administration of anesthetic agent S/P carpal tunnel release RT Status post Mohs surgery (05/2020) L hand for SCC Status post Mohs surgery (~06/2021) R ear, required removal of tragus Family History Mother Diabetes Father No known health problems Other No family history of adverse response to anesthesia Denies family history of Ovarian cancer Prostate cancer Myocardial infarction Breast cancer Colorectal cancer Social History Smoking Status: Former smoker Age Quit Using Tobacco: 58; Second Hand Exposure: Yes (IN THE PAST); Hx Alcohol Use: No Hx Substance Use: No Preferred Language: Hebrew Communication Ability: Effective Visual Impairment: No Limitations Hearing Ability: Normal Improvement Nurse Required: No Beliefs That Will Affect Care: None marital status: Current Living Situation: Spouse Current Living Situation Comment: Lives w/ and inlaws current occupational status: retired Feels Safe at Home: Yes Childhood Exposure to Second-Hand Smoke: Yes caffeine: No during the past year weight has: remained stable Dental Care, Regularly: Yes Physical Activity Frequency: Daily Seatbelt Use: always Sunscreen Use: Yes Assistive Devices: Glasses Review of Systems Review of Systems: All systems reviewed & are unremarkable except as noted in HPI & below Physical Exam Constitutional: well developed and + frail appearing; + not well nourished and no acute distress Eyes: PERRL, conjunctivae normal, anicteric sclerae sclerae not anicteric ENMT: external ear and nose normal, oropharynx normal Neck: trachea midline, no thyromegaly Respiratory: normal respiratory effort, lungs clear to auscultation Cardiovascular: RRR, no murmur, no edema Gastrointestinal (Abdomen): Inspection/Auscultation: normal bowel sounds Percussion/Palpation: abdomen soft and + hepatosplenomegaly; abdomen nontender, no guarding and abdomen not rigid Musculoskeletal: no cyanosis or clubbing, extremities motor strength 5/5 Skin: + jaundice (significant everywhere) Neurologic: moves all extremities and awake; no focal motor deficits and not confused Speech / Cognition: normal speech Psychiatric: A+Ox3, euthymic affect Results & Data Results & Data ([facility]) Vital Signs (Past 12 Hours) Vital Signs Temp Resp BP Pulse Ox 01/26/22 14:08 37 C 14 89/59 L 98 Code Status & VTE Plan Code Status Did not discuss with patient VTE Prophylaxis Plan VTE Prophylaxis will be ordered: Yes PG Care Time/CCT Total # of Minutes Spent Total Time Spent with Patient: Total time spent is greater than 50% in coordination of care (as documented) at patient's floor/unit and/or counseling patient: Coding Level of Care Code 18296 Initial Inpt Care Lvl 3 Diagnoses Jaundice R17 Gout M10.9 GERD (gastroesophageal reflux disease) K21.9 Arthritis M19.90 Hypertension I10 LENORA (acute kidney injury) N17.9
[2022-01-26 15:17] LABS: Partial Thromboplastin Time 27.9 Seconds (21.0-31.0)
[2022-01-26 15:20] LABS: iSTAT Potassium 4.9 mmol/L (3.3-5.0)
[2022-01-26 15:21] LABS: iSTAT Creatinine 2.4 mg/dl (0.6-1.3); iSTAT Hemoglobin 12.9 g/dl (14.0-18.0); iSTAT Ionized Calcium 1.26 mmol/l (1.12-1.32)
[2022-01-26 16:53] LABS: Alanine Aminotransferase 26 U/L (7-52); Albumin Level 3.1 gm/dl (3.4-5.0); Anion Gap 11 (3-11); Calcium 9.5 mg/dl (8.5-10.1); Carbon Dioxide 18 mmol/L (21-32); Chloride 104 mmol/L (98-107); Glucose 133 mg/dl (70-99(Fasting)); Sodium 133 mmol/L (136-145); Total Protein 6.8 gm/dl (6.0-8.3)
[2022-01-26 16:58] LABS: Bilirubin Direct 19.4 mg/dl (0-0.2)
[2022-01-26] MEDS ORDERED: CHOLESTYRAMINE LIGHT 4 GM PKT PO ONE (17:44)
[2022-01-26] MEDS: LACTATED RINGER'S 1,000 ML IV SCH (18:44)
--- NOTE | 2022-01-26 19:11 | Magnetic Resonance Report ---
MRCP CLINICAL HISTORY: Obstructive jaundice. COMPARISON STUDY: Abdominal CT dated 01/09/2022. TECHNIQUE: Abdominal MRCP is performed utilizing various T2-weighted sequences in the axial and coron al planes. IV contrast was not administered for this examination. 3D reformats are created and assess ed. The examination is compromised by motion artifact. FINDINGS: The gallbladder wall is circumferentially thickened. No gallstones are identified. The common bile du ct measures up to 5 mm in diameter. There are no intraluminal filling defects to suggest choledocholi thiasis. 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 There is moderate dilatation of the intrahepatic boaz e ducts in the left lobe. There is only mild dilatation of the right lobe ducts. The liver is enlarged, measuring 18.7 cm in length. The liver is infiltrated by multifocal hepatic me tastatic disease. A large lesion in segment IV likely obstructs the left-sided bile ducts. The unenha nced spleen, pancreas, adrenal glands, and kidneys are grossly unremarkable. The abdominal aorta is n ormal in caliber. There is trace perihepatic ascites. No pleural effusion is identified. Fusion hardw are is seen throughout the lumbar spine. There is no evidence of destructive bony lesion. Pulmonary l esions are noted at the lung bases. IMPRESSION: 1. The liver is enlarged and infiltrated by numerous mass lesions consistent with multifocal metastat ic disease. 2. There is moderate dilatation of the left lobe intrahepatic bile ducts, likely related to mass effe ct from the metastatic lesions. There is only mild dilatation of the right lobe ducts. 3. The extrahepatic bile ducts are normal in caliber. 4. Gallbladder wall thickening is nonspecific. There are no gallstones or clear MRI evidence of acute cholecystitis. 5. There is no evidence of choledocholithiasis. 6. 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 7. Trace perihepatic ascites. Dictated: 01/26/2022 6:08 PM Transcribed: 01/26/2022 6:18 PM Carito [id number] Electronically signed by: Aime Brunson M.D. 01/26/2022 7:10 PM
[2022-01-26] MEDS: ursodioL 300 MG CAP PO SCH (21:12)
[2022-01-26] MEDS: FEXOFENADINE 60 MG TAB PO PRN (21:13)
[2022-01-26] MEDS: SODIUM BICARBONATE 650 MG TAB PO SCH (21:14)
[2022-01-26] MEDS ORDERED: CHOLESTYRAMINE LIGHT 4 GM PKT PO SCH (22:00)
[2022-01-27] MEDS: LACTATED RINGER'S 1,000 ML IV SCH (06:07)
[2022-01-27 06:49] LABS: Basophils # (auto) 0.06 K/uL (0-0.2); Basophils % (auto) 0.3 %; Eosinophils # (auto) 0.16 K/uL (0-0.5); Eosinophils % (auto) 0.9 %; Hematocrit (blood only) 28.1 % (42-52); Immature Granulocytes # (auto) 0.47 K/uL (0.00-0.02); Immature Granulocytes % (auto) 2.5 %; Lymphocytes # (auto) 0.83 K/uL (1.2-3.4); Lymphocytes % (auto) 4.4 %; Mean Corpuscular Hemoglobin 31.9 pg (25-34); Mean Corpuscular Hgb Conc 35.6 g/dL (32-36); Mean Corpuscular Volume 89.8 fL (80-100); Mean Platelet Volume 11.6 fL (7.4-10.4); Monocytes # (auto) 1.65 K/uL (0.11-0.59); Monocytes % (auto) 8.8 %; Neutrophils # (auto) 15.58 K/uL (1.4-6.5); Neutrophils % (auto) 83.1 %; Platelet Count 732 K/uL (130-400); RDW Coefficient of Variation 18.7 % (11.5-14.5); RDW Standard Deviation 59.7 fL (36.4-46.3); Red Blood Count 3.13 M/uL (4.7-6.1); White Blood Count 18.75 K/uL (4.8-10.8)
[2022-01-27 07:32] LABS: Alanine Aminotransferase 20 U/L (7-52); Albumin Level 2.7 gm/dl (3.4-5.0); Anion Gap 8 (3-11); Aspartate Aminotransferase 44 U/L (13-39); Bilirubin,Total 29.4 mg/dl (0.2-1.0); Carbon Dioxide 20 mmol/L (21-32); Chloride 107 mmol/L (98-107); Glucose 92 mg/dl (70-99(Fasting)); Phosphorus 2.5 mg/dl (2.5-4.9); Sodium 135 mmol/L (136-145); Total Protein 5.7 gm/dl (6.0-8.3)
[2022-01-27 07:34] LABS: Bilirubin Direct 18.4 mg/dl (0-0.2)
[2022-01-27] MEDS: allopurinoL 100 MG TAB PO SCH (09:34)
[2022-01-27] MEDS: SODIUM BICARBONATE 650 MG TAB PO SCH ×2 (09:34→20:20)
[2022-01-27] MEDS: PANTOprazole 40 MG TAB PO SCH (09:34)
[2022-01-27] MEDS: ursodioL 300 MG CAP PO SCH ×2 (09:35→20:20)
--- NOTE | 2022-01-27 09:35 | Gastrointestinal Consultation ---
Date of Consultation January 27, 2022 Assessment & Plan (1) Liver masses: (2) Hyperbilirubinemia: Unfortunately, there is no role for biliary stents and his hyperbilirubinemia is secondary to the metastatic liver masses. Can move forward with liver biopsy for tissue diagnosis considering primary is unknown. Can add bile acid sequestrant if needed for pruritus. Overall prognosis poor, but further treatment planning can be determined based on biopsy results and oncology recommendations. Supervising Physician Co-Signing Physician Notes Agree with IFRAH Talavera as above Gen: Significant Jaundice, Cooperative, Chronic ill-appearing Chest: CTA B/L CVS: RRR -m/r/g Abd: Soft, NT, ND, +BS Ext: -c/c/e Dr. Kennedy has recommended biopsies tomorrow and will have port placed by Dr. Trevino Recommend continuing current therapy and supportive care Will follow clinical course and are available as needed. History of Present Illness Attending Physician: Nikolas Bhagat MD History of Present Illness Patient is a 71 yo male with recent diagnosis of metastatic cancer to the liver with unknown primary. He was directly admitted from his oncologist's office due to worsening hyperbilirubinemia (T Bili 36). He notes worsening jaundice over the past week. He has lost 15 lbs since January 09. He denies abdominal pain today. He reports he previously had itching diffusely throughout his body but this has improved. His total bilirubin today is 29.4. AST 44, ALT 20. D bili is 18.4. MRCP indicated liver enlargement and numerous mass lesions consistent with metastatic disease. There was moderate dilatation of the left lobe intrahepatic bile ducts related to mass effect from the metastatic lesions. Extrahepatic bile ducts are normal. Allergies Allergy/AdvReac Type Severity Reaction Status Date / Time ciprofloxacin AdvReac Intermediate stomach Verified 01/09/22 15:29 sickness, diarrhea Home Medications Medication Instructions Recorded Confirmed Type diclofenac sodium 1 % topical gel 2 g TOPICAL QID PRN #100 g 08/04/20 01/09/22 Rx (Voltaren) lisinopril 10 mg tablet 10 mg PO QAM #90 tab 08/13/21 01/09/22 Rx sildenafil 100 mg tablet (Viagra) 100 mg PO DAILY PRN #10 tab 08/13/21 01/09/22 Rx allopurinol 300 mg tablet 300 mg PO QAM 01/09/22 01/09/22 History celecoxib 200 mg capsule (Celebrex) 200 mg PO QAM 01/09/22 01/09/22 History omeprazole 20 mg tablet,delayed 20 mg PO QAM 01/09/22 01/09/22 History release Patient History Medical History Arthritis Degenerative disc disease Dyslipidemia Erectile dysfunction GERD (gastroesophageal reflux disease) History of brachytherapy History of prostate cancer History of prostate cancer "Rising PSA, pretreatment PSA 5.4 Status post ultrasound-guided biopsies revealing adenocarcinoma the prostate [place] 3+3, biopsy stage T2c Status post prostate seed implant as monotherapy with cesium 131 on 03/11/2014. 66 seeds were placed" History of squamous cell carcinoma of skin (05/2020) Hx of gout Hypertension Internal hemorrhoids Jaundice Liver cirrhosis PT DENIES Lumbar disc disease Osteoarthritis Rosacea Surgical History Fusion of spine LUMBAR History of carpal tunnel release (06/2021) History of esophagogastroduodenoscopy (EGD) Nausea and vomiting after administration of anesthetic agent S/P carpal tunnel release RT Status post Mohs surgery (05/2020) L hand for SCC Status post Mohs surgery (~06/2021) R ear, required removal of tragus Family History Mother Diabetes Father No known health problems Other No family history of adverse response to anesthesia Denies family history of Ovarian cancer Prostate cancer Myocardial infarction Breast cancer Colorectal cancer Social History Smoking Status: Former smoker Age Quit Using Tobacco: 58; Second Hand Exposure: Yes (IN THE PAST); Hx Alcohol Use: No Hx Substance Use: No Preferred Language: Bahraini Communication Ability: Effective Visual Impairment: No Limitations Hearing Ability: Normal Business Continuity Planning Director Required: No Beliefs That Will Affect Care: None marital status: Current Living Situation: Spouse Current Living Situation Comment: Lives w/ and inlaws current occupational status: retired Feels Safe at Home: Yes Childhood Exposure to Second-Hand Smoke: Yes caffeine: No during the past year weight has: remained stable Dental Care, Regularly: Yes Physical Activity Frequency: Daily Seatbelt Use: always Sunscreen Use: Yes Assistive Devices: None Review of Systems Constitutional: + fatigue Respiratory: no cough and no dyspnea Cardiovascular: no chest pain Gastrointestinal: no abdominal pain, no nausea, no vomiting and no change in bowel habits Integumentary: + yellowing of the skin Psychiatric: no problem reported Hematologic / Lymphatic: no unexplained weight loss Physical Exam Constitutional: WD/WN, vitals as above well developed Respiratory: normal respiratory effort, lungs clear to auscultation normal respiratory effort Cardiovascular: RRR, no murmur, no edema Rate/Rhythm: regular rate Gastrointestinal (Abdomen): normal bowel sounds, soft, nontender, no hepatosplenomegaly Inspection/Auscultation: abdomen normal to inspection Musculoskeletal: Head/Neck/Chest: normocephalic Psychiatric: Orientation: alert and oriented x 3 Results & Data ([facility]) Vital Signs (Past 12 Hours) Vital Signs Temp Pulse Pulse Resp BP Pulse Ox 01/27/22 07:30 94 H 01/27/22 06:41 36.8 C 97 H 18 100/66 97 01/27/22 02:38 36.4 C L 98 H 18 118/72 99 01/27/22 01:18 92 H 01/26/22 23:28 36.5 C 90 16 119/76 100 PG Care Time/CCT Total # of Minutes Spent Total Time Spent with Patient: Total time spent is greater than 50% in coordination of care (as documented) at patient's floor/unit and/or counseling patient: Coding Level of Care Code 61988 Initial Inpt Care Lvl 3 Diagnoses Liver masses R16.0 Hyperbilirubinemia E80.6
[2022-01-27 11:00] LABS: iSTAT Creatinine 2.1 mg/dl (0.6-1.3); iSTAT Hemoglobin 10.2 g/dl (14.0-18.0); iSTAT Ionized Calcium 1.25 mmol/l (1.12-1.32); iSTAT Potassium 4.1 mmol/L (3.3-5.0)
--- NOTE | 2022-01-27 11:58 | Hospitalist Progress Note ---
Date of Service January 27, 2022 Assessment & Plan (1) Liver masses: Plan: 71-year-old white male with a past history of prostate CA (implanted seeds) and SCCA s/p Mohs procedure and recently found liver metastasis (with unknown primary source) hospitalized given profound jaundice, hyperbilirubinemia, and radiographic evidence of mass-effect on the biliary tree causing obstruction. TB is elevated. AST slightly elevated with normal ALT. Lipase normal. INR normal. Patient hospitalized with attempts to perform ERCP with hepatobiliary stenting. GI consulted for this and they have reached out to consultants at [facility] (tertiary clinic). Unfortunately, biliary tree is not stent-able Lengthy discussion with patient regarding poor long-term prognosis I have discussed plan of care with Dr. Kennedy (oncology) who would like to start chemotherapy DARIEL. Patient is aware that chemotherapy will not be curative but palliative. In order to do this, tissue biopsy needed INR has been within normal limits I have reached out to radiology who will plan on an ultrasound-guided biopsy on 01/28/2022 at 10 AM In addition, I have consulted general surgery who will plan for Mediport tomorrow afternoon Am hopeful that patient can be discharged back to home tomorrow after biopsy and Mediport insertion (2) LENORA (acute kidney injury): Plan: Creatinine on arrival 2.4 (was 1.16 on 01/09)did call PCP and spoke to a nurse who confirmed creatinine was 1.16 on 01/09 Continue to hold IKE inhibitor and Celebrex Continue IV hydration (transition lactated Ringer's to Normosol) Follow-up metabolic panel in the a.m. (3) Jaundice: Plan: Secondary to #1 (4) Hyperbilirubinemia: Plan: Secondary to #1 (5) Prostate cancer: Plan: S/p intra prostate seeding (6) Squamous cell carcinoma of skin: Plan: S/p Mohs procedure X2 Plan: At this point, long-term prognosis poor. Goal is not curative but palliative. Plan is for liver biopsy tomorrow and hopeful Mediport insertion so that patient can begin palliative chemotherapy. This was discussed in great detail with patient, general surgery, and oncology. Plan of care will be discussed with attending provider. Further orders as warranted. Admission and Anticipated Discharge Date Admission Date: January 26, 2022 Subjective Patient seen on daily rounds today. Hospitalized last evening with biliary obstruction due to metastatic disease (unknown primary source). Does have a history of prostate CA with seed implantation along with SCCA s/p Mohs procedure. Has had ongoing fatigue with approximately 15 to 20 pound weight loss over the past month. He later reports jaundice which is what prompted him to seek medical attention. Was found to have an elevated bilirubin. Was referred to oncology. Had his first appointment yesterday and his MRCP showed multiple metastatic lesionscausing mass-effect and biliary obstruction. Patient was made a direct admission in hopes to have biliary stenting performed. Patient has since been seen by GI who also consulted with a tertiary center. Images were reviewed and unfortunately no available minimal interventions. In addition, patient was found to have LENORA. Creatinine was 2.4. Lisinopril and Celebrex have been on hold. Patient has been receiving IV hydration overnight. Creatinine this morning is 2.1. Patient does report night sweats but otherwise no fevers, chills, chest pain, shortness of breath, abdominal pain, nausea or vomiting. Review of Systems Review of Systems: All systems reviewed and are unremarkable except as noted in HPI and below Denies fevers, chills, headache, nasal congestion, sore throat, cough, chest pain, shortness of breath, palpitations, orthopnea, PND, abdominal pain, nausea, vomiting, diarrhea, constipation, dysuria, hematuria, frequency, back pain, joint pain or swelling, easy bruising or bleeding Physical Exam Physical Exam: General: Resting comfortably in his hospital bed. Appears ch ronically but not acutely ill or toxic. NAD. HEENT: Head is AT/NC. Buccal mucosa is moist and pink. scleral icterus noted Neck: No JVD. Negative hepatojugular reflex Cardiac: RRR Lungs: CTA without W/R/R Abdomen: Normoactive X4. Soft and nontender in all quadrants. Extremities: No peripheral clubbing cyanosis or edema Neuro: A&O X4. Cranial nerves II through XII are grossly intact. No focal neuro deficits Skin: Significant jaundice noted Psych: Appropriate affect. Pleasant and cooperative Results & Data Results & Data ([facility]) Vital Signs (Past 12 Hours) Vital Signs Temp Pulse Pulse Resp BP Pulse Ox 01/27/22 11:14 36.9 C 85 18 108/69 98 01/27/22 07:30 94 H 01/27/22 06:41 36.8 C 97 H 18 100/66 97 01/27/22 02:38 36.4 C L 98 H 18 118/72 99 01/27/22 01:18 92 H Laboratory Results 01/27/22 06:05 01/27/22 06:05 Creatinine: 2.1 TB: 29.4 Direct bilirubin: 18.4 AST: 44 ALT: 20 Alkaline phosphataseunable to be performed (results compromised given icterus). On 01/09 was 710. Diagnostic Findings MRCP: IMPRESSION: 1. The liver is enlarged and infiltrated by numerous mass lesions consistent with multifocal metastatic disease. 2. There is moderate dilatation of the left lobe intrahepatic bile ducts, likely related to mass effect from the metastatic lesions. There is only mild dilatation of the right lobe ducts. 3. The extrahepatic bile ducts are normal in caliber. 4. Gallbladder wall thickening is nonspecific. There are no gallstones or clear MRI evidence of acute cholecystitis. 5. There is no evidence of choledocholithiasis. 6. 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 7. Trace perihepatic ascites. CT of the abdomen and pelvis done prior to this hospital stay (01/09) reviewed: IMPRESSION: 1. There is evidence of diffuse/multifocal hepatic metastatic disease. 2. Multifocal pulmonary metastatic disease is seen at the lung bases. 3. Metastatic adenopathy is seen in the upper abdomen. 4. A site of primary neoplasm is not clearly delineated. A primary hepatic neoplasm such as cholangiocarcinoma should be considered. Tissue sampling will likely be required for definitive diagnosis. 5. No osseous metastatic lesions are clearly seen. 6. Colonic diverticulosis without CT evidence of acute diverticulitis. 7. The liver is enlarged with morphological changes of cirrhosis. 8. Additional findings as above PG Care Time/CCT Total # of Minutes Spent Total Time Spent with Patient: Total time spent is greater than 50% in coordination of care (as documented) at patient's floor/unit and/or counseling patient: Coding Level of Care Code 23841 Subseq Hosp Care Lvl 3 Diagnoses Liver masses R16.0 LENORA (acute kidney injury) N17.9 Jaundice R17 Hyperbilirubinemia E80.6 Prostate cancer C61 Squamous cell carcinoma of skin C44.92
[2022-01-27] MEDS: NORMOSOL-R 1,000 ML IV SCH ×2 (12:44→20:36)
--- NOTE | 2022-01-27 13:10 | Surgery Consultation ---
Date of Consultation January 27, 2022 Assessment & Plan (1) Liver masses: This is a 71yM with a PMH of prostate cancer who presents to the [facility] on 01/26/22 as a direct admission from the Cancer Center for hyperbilirubinemia. He has CT evidence of metastatic disease to the liver & lungs with associated adenopathy. Oncology is recommending port placement for chemotherapy. The cancer primary has not yet been determined but he is undergoing a liver biopsy tomorrow at 10am for pathology. We have been consulted for consideration of port placement this admission. Based on the OR schedule we will tentatively place him on for mediport tomorrow after liver biopsy. If the OR can reasonably accommoda te us and there are no urgent cases that must proceed the port, then we will proceed tomorrow. Otherwise, there is a chance we may have to postpone based on OR availability and/or other urgent cases... if that's the case then the patient may be discharged from our standpoint when okay with medicine with plans to follow up as previously planned on Monday. Supervising Physician Co-Signing Physician Notes Dr. Low with port in place and multiple recurrent blood cultures positive for gram-positive cocci We will plan on trying to remove port later today as the patient did eat breakfast We will send the catheter tip for culture History of Present Illness Attending Physician: Nikolas Bhagat MD History of Present Illness This is a 71yM with history of prostate cancer who presents to the [facility] on 01/26/22 as a direct admission from the Cancer Center for hyperbilirubinemia. Patient was unfortunately seen in our ER on 01/09/[address] scan findings showed evidence of metastatic disease in the liver, lungs with associated adenopathy. He was discharged with plans for outpatient follow up in the cancer center. After an appointment with them yesterday, labs were drawn and noted to have elevated liver enzymes so he was directly admitted under the hospitalists service. The primary cancer has not yet been identified, but he will be undergoing a liver biopsy tomorrow. We have been consulted for consideration of port placement. Patient reports + jaundice, itching of the skin, and a 15lbs weight loss over the last month. Allergies Allergy/AdvReac Type Severity Reaction Status Date / Time ciprofloxacin AdvReac Intermediate stomach Verified 01/09/22 15:29 sickness, diarrhea Home Medications Medication Instructions Recorded Confirmed Type diclofenac sodium 1 % topical gel 2 g TOPICAL QID PRN #100 g 08/04/20 01/09/22 R x (Voltaren) lisinopril 10 mg tablet 10 mg PO QAM #90 tab 08/13/21 01/09/22 Rx sildenafil 100 mg tablet (Viagra) 100 mg PO DAILY PRN #10 tab 08/13/21 01/09/22 Rx allopurinol 300 mg tablet 300 mg PO QAM 01/09/22 01/09/22 History celecoxib 200 mg capsule (Celebrex) 200 mg PO QAM 01/09/22 01/09/22 History omeprazole 20 mg tablet,delayed 20 mg PO QAM 01/09/22 01/09/22 History release Patient History Medical History Arthritis Degenerative disc disease Dyslipidemia Erectile dysfunction GERD (gastroesophageal reflux disease) History of brachytherapy History of prostate cancer History of prostate cancer "Rising PSA, pretreatment PSA 5.4 Status post ultrasound-guided biopsies revealing adenocarcinoma the prostate Yaw 3+3, biopsy stage T2c Status post prostate seed implant as monotherapy with cesium 131 on 03/11/2014. 66 seeds were placed" History of squamous cell carcinoma of skin (05/2020) Hx of gout Hypertension Internal hemorrhoids Jaundice Liver cirrhosis PT DENIES Lumbar disc disease Osteoarthritis Rosacea Surgical History Fusion of spine LUMBAR History of carpal tunnel release (06/2021) History of esophagogastroduodenoscopy (EGD) Nausea and vomiting after administration of anesthetic agent S/P carpal tunnel release RT Status post Mohs surgery (05/2020) L hand for SCC Status post Mohs surgery (~06/2021) R ear, required removal of tragus Family History Mother Diabetes Father No known health problems Other No family history of adverse response to anesthesia Denies family history of Ovarian cancer Prostate cancer Myocardial infarction Breast cancer Colorectal cancer Social History Smoking Status: Former smoker Age Quit Using Tobacco: 58; Second Hand Exposure: Yes (IN THE PAST); Hx Alcohol Use: No Hx Substance Use: No Preferred Language: Luxembourgish Communication Ability: Effective Visual Impairment: No Limitations Hearing Ability: Normal Teachers' Aide Required: No Beliefs That Will Affect Care: None marital status: Current Living Situation: Spouse Current Living Situation Comment: Lives w/ and inlaws current occupational status: retired Feels Safe at Home: Yes Childhood Exposure to Second-Hand Smoke: Yes caffeine: No during the past year weight has: remained stable Dental Care, Regularly: Yes Physical Activity Frequency: Daily Seatbelt Use: always Sunscreen Use: Yes Assistive Devices: None Review of Systems Constitutional: + weight loss; no fever and no chills Gastrointestinal: no abdominal pain, no nausea and no vomiting Integumentary: + pruritus and + yellowing of the skin Physical Exam Physical Exam: awake/alert, jaundice Respiratory: normal respiratory effort Gastrointestinal (Abdomen): Percussion/Palpation: abdomen soft; abdomen nontender Results & Data ([facility]) Vital Signs (Past 12 Hours) Vital Signs Temp Pulse Pulse Resp BP Pulse Ox 01/27/22 11:14 36.9 C 85 18 108/69 98 01/27/22 07:30 94 H 01/27/22 06:41 36.8 C 97 H 18 100/66 97 01/27/22 02:38 36.4 C L 98 H 18 118/72 99 01/27/22 01:18 92 H Diagnostic Findings MRCP CLINICAL HISTORY: Obstructive jaundice. COMPARISON STUDY: Abdominal CT dated 01/09/2022. TECHNIQUE: Abdominal MRCP is performed utilizing various T2-weighted sequences in the axial and coronal planes. IV contrast was not administered for this examination. 3D reformats are created and assessed. The examination is compromised by motion artifact. FINDINGS: The gallbladder wall is circumferentially thickened. No gallstones are identified. The common bile duct measures up to 5 mm in diameter. There are no intraluminal filling defects to suggest choledocholithiasis. 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 There is moderate dilatation of the intrahepatic bile ducts in the left lobe. There is only mild dilatation of the right lobe ducts. The liver is enlarged, measuring 18.7 cm in length. The liver is infiltrated by multifocal hepatic metastatic disease. A large lesion in segment IV likely obstructs the left-sided bile ducts. The unenhanced spleen, pancreas, adrenal glands, and kidneys are grossly unremarkable. The abdominal aorta is normal in caliber. There is trace perihepatic ascites. No pleural effusion is identified. Fusion hardware is seen throughout the lumbar spine. There is no evidence of destructive bony lesion. Pulmonary lesions are noted at the lung bases. IMPRESSION: 1. The liver is enlarged and infiltrated by numerous mass lesions consistent with multifocal metastatic disease. 2. There is moderate dilatation of the left lobe intrahepatic bile ducts, likely related to mass effect from the metastatic lesions. There is only mild dilatation of the right lobe ducts. 3. The extrahepatic bile ducts are normal in caliber. 4. Gallbladder wall thickening is nonspecific. There are no gallstones or clear MRI evidence of acute cholecystitis. 5. There is no evidence of choledocholithiasis. 6. 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 7. Trace perihepatic ascites. Dictated: 01/26/2022 6:08 PM Transcribed: 01/26/2022 6:18 PM Carito [id number] AMINTA_Sam PG Care Time/CCT Total # of Minutes Spent Total Time Spent with Patient: Total time spent is greater than 50% in coordination of care (as documented) at patient's floor/unit and/or counseling patient: Coding Level of Care Code 54387 Initial Inpt Care Lvl 1 Diagnoses Liver masses R16.0
[2022-01-27] MEDS: FEXOFENADINE 60 MG TAB PO PRN (20:21)
--- NOTE | 2022-01-28 03:33 | Consultation Report ---
DATE OF SERVICE: 01/27/2022. REASON FOR CONSULTATION: Metastatic cancer. HISTORY OF PRESENT ILLNESS: Mr. 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 In summary, the patient had initially presented to the ED on with jaundice, dark urine, and mild abdominal discomfort. Labs obtained at that time had revealed a hyperbilirubinemia with bilirubin of 11.6, direct bilirubin of 6.9, and elevated alkaline phosphata se of 710. CT abdomen and pelvis obtained on 01/09/2022 revealed evidence of diffuse multifocal hepa tic disease, multifocal pulmonary metastatic disease, metastatic adenopathy in the upper abdomen, nicole er cirrhosis with site of primary neoplasm suspected to be possibly cholangiocarcinoma. He was subse quently referred to me in oncology clinic. During my evaluation of the patient yesterday, I had note d that he was significantly jaundiced and recommended blood work which revealed elevated bilirubin, t otal bilirubin of 37.5 with indirect bilirubin of 21. We subsequently recommended that he present to the emergency room, which he did. On arrival to the ED, he had MRCP performed which revealed enlarg ed liver infiltrated by numerous mass lesions consistent with multifocal metastatic disease, moderate dilatation of the left lobe of the intrahepatic bile duct, likely related to mass effect from metast atic lesion with only mild dilatation of right lobe ducts, and trace perihepatic ascites. GI was con sulted and indicated that there was no role for stent placement. The patient is scheduled to have a MediPort placed tomorrow as well as biopsy for diagnosis as well as identification of the primary. D uring my evaluation of the patient today, he complains of weight loss, decreased appetite, pruritus, and jaundice. HOME MEDICATIONS: 1. Lisinopril 10 mg p.o. every day. 2. Viagra 100 mg p.o. p.r.n. 3. Allopurinol 300 mg p.o. every day. 4. Omeprazole 20 mg p.o. every day. ALLERGIES: CIPROFLOXACIN. PAST MEDICAL HISTORY: 1. History of prostate cancer. 2. Squamous cell carcinoma of the skin. 3. Liver cirrhosis. PAST SURGICAL HISTORY: 1. History of Mohs surgery. 2. Carpal tunnel release. FAMILY HISTORY: No family history of malignancy. SOCIAL HISTORY: He is a former smoker. He quit smoking several years ago. Denies alcohol and illic it drug use. REVIEW OF SYSTEMS: CONSTITUTIONAL: Positive for weight loss. No fever or night sweats. EYES: Positive for jaundice. ENT: Negative. CARDIOVASCULAR: Negative for chest pain, palpitations, dizziness, or diaphoresis. RESPIRATORY: Negative for shortness of breath, hemoptysis, or cough. GASTROINTESTINAL: Negative for diarrhea, hematemesis, melena, nausea, vomiting, or dyspepsia. SKIN: Positive for rash and jaundice. GENITOURINARY: Negative for urinary frequency, hematuria or dysuria. MUSCULOSKELETAL: Negative for new joint or back pain. PHYSICAL EXAMINATION: VITAL SIGNS: Blood pressure of 113/73, heart rate 92, respiratory rate 18, temperature 36.4, oxygen saturation 97% on room air. CONSTITUTIONAL: Vitals appeared stable. EYES: Significant for scleral icterus. ENT: Negative for masses. NECK: Negative for palpable masses. RESPIRATORY: Lung sounds were generally clear bilaterally. CARDIOVASCULAR: Heart has regular rate and rhythm without significant murmur, gallops or rubs. GASTROINTESTINAL: The abdomen was soft with normal bowel sounds and no palpable hepatosplenomegaly. LYMPHATIC SYSTEM: No palpable peripheral lymphadenopathy. EXTREMITIES: Negative for edema. ASSESSMENT: 1. 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 2. Significant hyperbilirubinemia secondary to liver metastasis. 3. Weight loss. PLAN: A pleasant gentleman who I had the pleasure of meeting yesterday for the first time, who unfor tunately appears to have widely metastatic cancer, possibly due to a primary cholangiocarcinoma. Agr ee with plan for biopsy tomorrow as well as MediPort placement in order to expedite chemotherapy admi nistration. Given significantly elevated hyperbilirubinemia, would recommend treating with single ag ent 5-FU/leucovorin or Xeloda. Would not treat him at this time with gemcitabine based therapy given hyperbilirubinemia. Discussed with the patient and his that overall prognosis is poor. He wou ld, however, like to try treatment to see if there might be some benefit. Will arrange for him to be seen next week to potentially start chemotherapy with 5-FU. Thank you for this consult. Oncology will see the patient upon discharge from hospital. Please feel free to call if you have any further questions. Job ID: [id number]
[2022-01-28] MEDS: NORMOSOL-R 1,000 ML IV SCH ×2 (06:14→09:19)
[2022-01-28] MEDS ORDERED: ceFAZolin 2000MG 2,000 MG/15 ML SYR IV ONE ×2 (06:34→06:45)
[2022-01-28 07:41] LABS: INR 1.2 (0.9-1.1)
[2022-01-28 09:14] LABS: Alanine Aminotransferase 18 U/L (7-52); Albumin Level 2.5 gm/dl (3.4-5.0); Aspartate Aminotransferase 38 U/L (13-39); Bilirubin,Total 27.5 mg/dl (0.2-1.0); Calcium 8.6 mg/dl (8.5-10.1); Glucose 91 mg/dl (70-99(Fasting)); Total Protein 5.5 gm/dl (6.0-8.3)
[2022-01-28 10:12] LABS: iSTAT Creatinine 1.7 mg/dl (0.6-1.3); iSTAT Hemoglobin 10.2 g/dl (14.0-18.0); iSTAT Ionized Calcium 1.17 mmol/l (1.12-1.32); iSTAT Potassium 3.3 mmol/L (3.3-5.0)
--- NOTE | 2022-01-28 10:37 | Anesthesiology Consultation ---
Date of Service January 28, 2022 Assessment & Plan Chart Review Chart Review: Acceptable Risk for Surgery Consults Requested none ASA ASA4 Proposed Anesthesia Anesthesia Type: MAC Risk / Benefits Reviewed With: PT / POA / Parent / Guardian, Accepts Plan and Informed Consent Obtained History Surgery Operation Date: 01/28/22 07:00 Proposed Procedures p Mediport Insertion - Jamison Trevino MD, FACS Height/Weight Height: 5 ft 5 in Weight: 55.6 kg Allergies Allergy/AdvReac Type Severity Reaction Status Date / Time ciprofloxacin AdvReac Intermediate stomach Verified 01/09/22 15:29 sickness, diarrhea Medications Home Medications Medication Instructions Recorded Confirmed Last Taken diclofenac sodium 1 % topical gel 2 g TOPICAL QID PRN #100 g 08/04/20 01/09/22 01/09/22 (Voltaren) lisinopril 10 mg tablet 10 mg PO QAM #90 tab 08/13/21 01/09/22 01/09/22 sildenafil 100 mg tablet (Viagra) 100 mg PO DAILY PRN #10 tab 08/13/21 01/09/22 Unknown allopurinol 300 mg tablet 300 mg PO QAM 01/09/22 01/09/22 01/09/22 celecoxib 200 mg capsule (Celebrex) 200 mg PO QAM 01/09/22 01/09/22 01/09/22 omeprazole 20 mg tablet,delayed 20 mg PO QAM 01/09/22 01/09/22 01/09/22 release Active Medications Generic Name Dose Route Start Last Admin Trade Name Freq PRN Reason Stop Dose Admin Allopurinol 100 mg 01/27/22 09:00 01/27/22 09:34 Allopurinol 100 Mg Tab PO 02/26/22 08:59 100 mg QAM NETTIE Administration Fexofenadine HCl 60 mg 01/26/22 17:43 01/27/22 20:21 Fexofenadine 60 Mg Tab PO 02/25/22 17:42 60 mg Q12H PRN Administration itching Parenteral Electrolytes 1,000 mls @ 100 mls/hr 01/27/22 12:00 01/28/22 09:19 Plasma-Lyte A IV 02/26/22 11:59 100 mls/hr .Q10H NETTIE Administration Pantoprazole Sodium 40 mg 01/27/22 09:00 01/27/22 09:34 Pantoprazole 40 Mg Tab PO 02/26/22 08:59 40 mg QAM NETTIE Administration Protocol Sodium Bicarbonate 650 mg 01/26/22 21:00 01/27/22 20:20 Sodium Bicarbonate 650 Mg Tab PO 02/25/22 20:59 650 mg BID NETTIE Administration Ursodiol 300 mg 01/26/22 21:00 01/27/22 20:20 Ursodiol 300 Mg Cap PO 02/25/22 20:59 300 mg BID NETTIE Administration NPO Date Last Intake of Fluids: 01/27/22 Time Last Intake of Fluids: 22:00 Date Last Intake of Solids: 01/27/22 Time Last Intake of Solids: 17:00 Past Medical History Medical History (Updated 01/28/22 @ 10:35 by Malissa Cervantes DO) LENORA (acute kidney injury) Arthritis Degenerative disc disease Dyslipidemia Erectile dysfunction GERD (gastroesophageal reflux disease) History of brachytherapy History of prostate cancer History of prostate cancer "Rising PSA, pretreatment PSA 5.4 Status post ultrasound-guided biopsies revealing adenocarcinoma the prostate Yaw 3+3, biopsy stage T2c Status post prostate seed implant as monotherapy with cesium 131 on 03/11/2014. 66 seeds were placed" History of squamous cell carcinoma of skin (05/2020) Hx of gout Hyperbilirubinemia Hypertension Internal hemorrhoids Jaundice Jaundice Liver cirrhosis PT DENIES Liver masses Lumbar disc disease Osteoarthritis Rosacea Exercise / Class Metabolic Activity III < 4 Walking/Shop/Light housework Past Family History Family History Mother Diabetes Father No known health problems Other No family history of adverse response to anesthesia Denies family history of Ovarian cancer Prostate cancer Myocardial infarction Breast cancer Colorectal cancer Past Surgical History Surgical History (Updated 01/28/22 @ 10:35 by Malissa Cervantes DO) Fusion of spine LUMBAR History of carpal tunnel release (06/2021) History of esophagogastroduodenoscopy (EGD) History of liver biopsy Nausea and vomiting after administration of anesthetic agent S/P carpal tunnel release RT Status post Mohs surgery (05/2020) L hand for SCC Status post Mohs surgery (~06/2021) R ear, required removal of tragus Past Anesthesia History No Hx of Anesthesia Complications and No Family Hx of Anesthesia Complications History of PONV No Hx of PONV and No Hx of Motion Sickness Social History Smoking Status: Former smoker tobacco type: cigarettes and smokeless tobacco Hx Alcohol Use: No Alcohol type: beer alcohol intake frequency: 3 or more drinks per day Hx Substance Use: No Physical Exam Vital Signs Last Vital Signs Temp 36.7 C 01/28/22 11:00 Pulse 83 01/28/22 11:00 Resp 16 01/28/22 11:00 BP 135/76 01/28/22 11:00 Pulse Ox 98 01/28/22 11:00 ENMT Mouth: no TMJ abnormality Thyromental Distance: > or= 3.5 Finger Breadths Mallampati Class: II Neck normal visual inspection and trachea midline; neck extension not limited Respiratory normal respiratory effort Auscultation: lungs clear to auscultation bilaterally Cardiovascular Rate/Rhythm: regular rate and regular rhythm Heart Sounds: no murmur Musculoskeletal Spine: normal cervical ROM Extremities: full ROM of extremities Skin jaundice Neurologic moves all extremities Psychiatric Orientation: alert and oriented x 3 Testing Laboratory Results 01/27/22 06:05 01/28/22 07:08 PT 13.0 Seconds (9.0-12.0) H 01/28/22 07:08 INR 1.2 (0.9-1.1) H 01/28/22 07:08 APTT 27.9 Seconds (21.0-31.0) 01/26/22 14:48 01/28/22 04:44 POC Glucose (other) 87 01/28/22 Na 140 K3.3 BUN 36 creat 1.7 gluc 91 Tbili 27.5 albumin 2.5 Electrocardiogram Date: 01/28/22 Findings: + NSR @ (84)
--- NOTE | 2022-01-28 11:04 | Ultrasound Report ---
ULTRASOUND GUIDED CORE BIOPSY AND FINE-NEEDLE ASPIRATION OF RIGHT HEPATIC LOBE MASS CLINICAL HISTORY: abnormal MRCP, hyperbilirubinemia COMPARISON STUDY: CT of the abdomen and pelvis January 09, 2022. MRCP January 26, 2022. PROCEDURE: Sonography of the liver demonstrated multiple hepatic masses. Index right hepatic lobe les ion was targeted. The procedure comparison benefits were discussed with the patient including the ris k of bleeding, infection and injury to adjacent structures. The patient agreed to the procedure and i nformed written consent was obtained. The procedure was performed by Dr. Correia following a timeou t. Skin overlying the right hepatic lobe was prepped and draped in sterile fashion and local anesthes ia was achieved with 1% lidocaine. Under direct ultrasound guidance, a 22-gauge fine needle aspiratio n was performed utilizing a Jeffrey needle. A 2 cm 18-gauge core sample was then performed. Samples were deemed preliminarily adequate by pathology. The patient tolerated the procedure well and no imme diate complications were evident. IMPRESSION: Successful ultrasound guided 18-gauge core biopsy and fine-needle aspiration of a right hepatic lobe mass. ACT 112: Negative or not required by law. Electronically signed by: Joao Correia M.D. 01/28/2022 11:03 AM
[2022-01-28] MEDS ORDERED: fentaNYL citrate 100 MCG/2 ML VIAL IV PRN (11:09)
[2022-01-28] MEDS ORDERED: ONDANSETRON INJ 2 MG/ML 2 ML VIAL IV PRN ×2 (11:09→14:16)
[2022-01-28] MEDS ORDERED: HYDROmorphone INJ 1 MG/ML SYRINGE IV PRN (11:09)
[2022-01-28] MEDS ORDERED: ATROPINE SULFATE 0.1 MG/ML 10ML SYR IV PRN (11:09)
[2022-01-28] MEDS ORDERED: ePHEDrine sulfate 50 MG/ML AMP IV PRN (11:09)
[2022-01-28] MEDS ORDERED: fentaNYL citrate 100 MCG/2 ML VIAL ONE (11:20)
[2022-01-28] MEDS ORDERED: PROPOFOL IV EMULSION 10 MG/ML 20 ML VIAL IV ONE (11:20)
[2022-01-28] MEDS ORDERED: LIDOCAINE 1% LOCAL 20 ML VIAL ONE (11:23)
[2022-01-28] MEDS ORDERED: THROMBIN FOR SOLN 20000 UNIT KIT ONE (11:23)
[2022-01-28] MEDS ORDERED: ceFAZolin 330 MG/ML 1 GM VIAL ONE (11:23)
[2022-01-28] MEDS ORDERED: HEPARIN (PORCINE) 1000 UNIT/ML 10 ML (CATH LAB USE ONLY) ONE (11:23)
[2022-01-28] MEDS ORDERED: ceFAZolin 2,000 MG/15 ML IV PUSH IV ONE (12:11)
[2022-01-28] MEDS ORDERED: PHENYLEPHRINE HCL 10 MG/ML VIAL ONE (12:33)
[2022-01-28] MEDS ORDERED: ONDANSETRON INJ 2 MG/ML 2 ML VIAL ONE (12:33)
--- NOTE | 2022-01-28 12:57 | Post Operative Brief Note ---
PG Immediate Post Op with CF Date of Surgery January 28, 2022 Pre & Post Diagnosis Operation Date: 01/28/22 07:00 Pre-Op Diagnosis: (1) Liver masses Post-Op Diagnosis: (1) Liver masses, access port I identified the patient and participated in the time-out.: Yes Procedure Operation Date: 01/28/22 07:00 Actual Procedures p Mediport Insertion(Left) - Jamison Trevino MD, FACS Surgeon Jamison Trevino MD, FACS Formulator Nurses Estimated Blood Loss 5 Findings Consistent with Post-Op Diagnosis Port placed in left cephalic vein Specimens Specimen Description: none per surgeon
--- NOTE | 2022-01-28 13:21 | Anesthesiology Progress Note ---
Date of Service January 28, 2022 Anesthesia Post Procedure Vital Signs Vital Signs: Temp Pulse Pulse Pulse Resp BP BP 01/28/22 13:15 36.4 C L 75 14 108/64 01/28/22 13:05 68 14 107/61 01/28/22 12:58 36.5 C 68 12 126/64 01/28/22 11:00 36.7 C 83 16 135/76 01/28/22 07:46 36.5 C 72 16 115/71 01/28/22 07:42 94 H 01/28/22 03:29 36.8 C 98 H 18 120/71 01/28/22 01:25 102 H 01/27/22 23:00 36.9 C 109 H 18 116/73 01/27/22 18:31 36.8 C 102 H 18 124/79 01/27/22 15:50 36.4 C L 92 H 18 113/73 01/27/22 15:32 90 Pulse Ox 01/28/22 13:15 99 01/28/22 13:05 97 01/28/22 12:58 100 01/28/22 11:00 98 01/28/22 07:46 97 01/28/22 07:42 01/28/22 03:29 98 01/28/22 01:25 01/27/22 23:00 98 01/27/22 18:31 97 01/27/22 15:50 97 01/27/22 15:32 Transfer of Care Handoff Completed per policy Notes Mental Status: alert / awake / arousable Patient Amnestic to Procedure: Yes Nausea / Vomiting: adequately controlled Pain: adequately controlled Airway Patency, RR, SpO2: stable & adequate BP & HR: stable & adequate Hydration State: stable & adequate Anesthetic Complications: no major complications apparent and Pt Satisfied with anesthetic care
--- NOTE | 2022-01-28 13:24 | Operative Report (OR) ---
DATE OF OPERATION: 01/28/2022. NAME OF OPERATION: Access port placement. PREOPERATIVE DIAGNOSIS: Metastatic carcinoma. POSTOPERATIVE DIAGNOSIS: Metastatic carcinoma. STAFF SURGEON: Jamison Trevino MD ANESTHESIA: A 1% plain lidocaine with sedation. DESCRIPTION OF PROCEDURE: The patient was brought in to the operating room and placed on the operati ng table in supine position. A roll was placed between his shoulders. After appropriate sedation, h is chest was prepped and draped in the usual fashion. A 1% plain lidocaine was used to anesthetize t he skin and subcutaneous tissue over the left deltopectoral groove. Incision was made carrying disse ction down identifying the cephalic vein. The vein was ligated distally using 2-0 silk suture, then opened. A catheter passed under fluoroscopy into the superior vena cava, secured using 2-0 silk sutu re. Catheter was aspirated and flushed with heparinized solution. A pocket was fashioned in the zena[address] wall. The port was attached to the catheter, port placed into the pocket, it was heparinized. It was secured to the chest wall using 3-0 Prolene suture. The site was irrigated with antibiotic solu tion. Subcutaneous tissue reapproximated using 2-0 chromic suture, then the skin reapproximated usin g 4-0 nylon suture. Dressing applied and the patient was transferred to the Recovery Room in stable condition. Job ID: [id number]
--- NOTE | 2022-01-28 13:43 | XRay Report ---
XR chest 1V portable CLINICAL HISTORY: Status post port placement. Evaluate for pneumothorax. COMPARISON STUDY: 03/17/2016 TECHNIQUE: 1 view of the chest FINDINGS: Single frontal view of the chest demonstrates the cardiomediastinal silhouette to be within normal li mits. There has been placement of a left-sided port catheter via the left subclavian vein. The tip of the catheter is in the right atrium. There is no evidence for pneumothorax.. The lungs are clear of alveolar opacities. There is no evidence for pleural effusion. There is no evidence for vascular jonn estion. There is no acute osseous pathology. IMPRESSION: 1. No acute cardiopulmonary disease. 2. Status post port catheter on the left with no pneumothorax. ACT 112: Negative or not required by law. Electronically signed by: Srinivas Esquivel M.D. 01/28/2022 1:42 PM
[2022-01-28] MEDS ORDERED: oxyCODONE HCL IR 5 MG TAB (IMMEDIATE RELEASE) PO PRN (14:16)
[2022-01-28 14:19] VITALS: TEMP 97.7
[2022-01-28] MEDS: SODIUM BICARBONATE 650 MG TAB PO SCH (14:30)
[2022-01-28] MEDS: allopurinoL 100 MG TAB PO SCH (14:30)
[2022-01-28] MEDS: PANTOprazole 40 MG TAB PO SCH (14:31)
[2022-01-28] MEDS: ursodioL 300 MG CAP PO SCH (14:31)
[2022-01-28 14:34] VITALS: BP 127/76; O2SAT 96
[2022-01-28 15:58] VITALS: PULSE 84
[2022-01-29] MEDS ORDERED: ceFAZolin 2000MG 2,000 MG/15 ML SYR IV ONE (06:00)
--- NOTE | 2022-01-31 14:01 | Electrocardiogram Report ---
Test Reason : Blood Pressure : / mmHG Vent. Rate : 084 BPM Atrial Rate : 084 BPM P-R Int : 160 ms QRS Dur : 094 ms QT Int : 400 ms P-R-T Axes : 071 001 058 degrees QTc Int : 472 ms Sinus rhythm with occasional Premature ventricular complexes Low voltage QRS Borderline ECG When compared with ECG of 25-FEB-2014 10:05, Premature ventricular complexes are now Present QRS voltage has decreased Confirmed by Shashi Garcia ([id number]) on 01/31/2022 2:00:56 PM Referred By: Shay Hill Confirmed By:Shashi Garcia
== END 2022-01-28 15:29 | disposition home or self-care (01) | DRG 435 ==
LOC: 2N 13:39 → SUATTDRO 14:08

== ENCOUNTER 2022-03-11 22:01 | Inpatient (IN) ==
[2022-03-11 22:42] LABS: Mean Corpuscular Hgb Conc 34.4 g/dL (32-36); Mean Platelet Volume 10.8 fL (7.4-10.4); Platelet Count 496 K/uL (130-400)
[2022-03-11] MEDS ORDERED: SODIUM CHLORIDE 0.9% 1000ML 2,000 ML IV ONE (22:58)
[2022-03-11 23:08] LABS: INR 3.2 (0.9-1.1); Partial Thromboplastin Ratio 1.7; Prothrombin Time 32.2 Seconds (9.0-12.0)
[2022-03-11 23:12] LABS: Anisocytosis Present; Basophils # (auto) 0.01 K/uL (0-0.2); Basophils % (auto) 0.3 %; Echinocytes 1+; Hematocrit (blood only) 29.9 % (42-52); Hemoglobin 10.3 g/dL (14.0-18.0); Immature Granulocytes # (auto) 0.03 K/uL (0.00-0.02); Immature Granulocytes % (auto) 0.8 %; Lymphocytes % (auto) 13.6 %; Mean Corpuscular Hemoglobin 31.8 pg (25-34); Mean Corpuscular Volume 92.3 fL (80-100); Monocytes # (auto) 0.35 K/uL (0.11-0.59); Monocytes % (auto) 9.5 %; Neutrophils # (auto) 2.79 K/uL (1.4-6.5); Neutrophils % (auto) 75.8 %; Nucleated RBC # (auto) 0.48 K/uL (0-0); Nucleated RBC % (auto) 13.2 %; Polychromasia 1+; RDW Coefficient of Variation 21.5 % (11.5-14.5); RDW Standard Deviation 68.8 fL (36.4-46.3); Red Blood Count 3.24 M/uL (4.7-6.1); Target Cells 1+; White Blood Count 3.68 K/uL (4.8-10.8)
[2022-03-11 23:15] LABS: Alanine Aminotransferase 48 U/L (7-52); Albumin Globulin Ratio 0.9 (0.9-2); Albumin Level 2.4 gm/dl (3.4-5.0); Anion Gap 17 (3-11); Calcium 8.2 mg/dl (8.5-10.1); Carbon Dioxide 10 mmol/L (21-32); Chloride 112 mmol/L (98-107); Globulin 2.6 gm/dl (2.5-4.0); Glucose 161 mg/dl (70-99(Fasting)); Sodium 139 mmol/L (136-145)
[2022-03-11 23:20] LABS: Aspartate Aminotransferase 75 U/L (13-39); Magnesium 1.9 mg/dl (1.7-2.4); Potassium 3.4 mmol/L (3.5-5.1)
[2022-03-11 23:22] LABS: Partial Thromboplastin Time 46.8 Seconds (21.0-31.0)
--- NOTE | 2022-03-11 23:34 | Emergency Department Note ---
History of Present Illness General Chief complaint: Illness Time Seen by Provider: 03/11/22 22:24 History of Present Illness 71-year-old male presents to the ED with a chief complaint of shortness of breath. 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 He was at his oncologist office earlier today and was felt to be dehydrated. He had some outpatient blood work as well as some outpatient IV fluids. The patient developed the shortness of breath this evening. No chest pains. No cough. No nausea vomiting or fevers. The patient had chemotherapy last week. Home Medications Medication Instructions Recorded Confirmed Type diclofenac sodium 1 % topical gel 2 g TOPICAL QID PRN #100 g 08/04/20 02/10/22 Rx (Voltaren) sildenafil 100 mg tablet (Viagra) 100 mg PO DAILY PRN #10 tab 08/13/21 02/10/22 Rx allopurinol 300 mg tablet 300 mg PO QAM 01/09/22 02/10/22 History compress.stocking,knee,reg,med #2 ea 02/10/22 02/10/22 Rx triamcinolone acetonide 0.5 % 1 applic TOPICAL BID PRN #60 g 02/10/22 02/10/22 Rx topical cream omeprazole 20 mg tablet,delayed 20 mg PO DAILY #90 tab 02/17/22 Rx release Allergies Allergy/AdvReac Type Severity Reaction Status Date / Time ciprofloxacin AdvReac Intermediate stomach Verified 02/10/22 13:26 sickness, diarrhea Past Med/Surg History Medical History Arthritis Degenerative disc disease Dyslipidemia Erectile dysfunction GERD (gastroesophageal reflux disease) History of brachytherapy History of prostate cancer History of prostate cancer "Rising PSA, pretreatment PSA 5.4 Status post ultrasound-guided biopsies revealing adenocarcinoma the prostate [place] 3+3, biopsy stage T2c Status post prostate seed implant as monotherapy with cesium 131 on 03/11/2014. 66 seeds were placed" History of squamous cell carcinoma of skin (05/2020) Hx of gout Hypertension Internal hemorrhoids Jaundice Jaundice Liver cirrhosis PT DENIES Liver masses Lumbar disc disease Osteoarthritis Rosacea Surgical History Fusion of spine LUMBAR History of carpal tunnel release (06/2021) History of esophagogastroduodenoscopy (EGD) History of liver biopsy Nausea and vomiting after administration of anesthetic agent Port-A-Cath in place (01/28/22) Access port placement. Dr. Trevino S/P carpal tunnel release RT Status post Mohs surgery (05/2020) L hand for SCC Status post Mohs surgery (~06/2021) R ear, required removal of tragus Family History Mother Diabetes Father No known health problems Other No family history of adverse response to anesthesia Denies family history of Ovarian cancer Prostate cancer Myocardial infarction Breast cancer Colorectal cancer Social History Smoking Status: Never smoker Tobacco Type: Cigarettes Age Quit Using Tobacco: 58; packs per day: 0.25; Second Hand Exposure: Yes (IN THE PAST); Hx Alcohol Use: No Hx Substance Use: No Preferred Language: Spanish Communication Ability: Effective Visual Impairment: No Limitations Hearing Ability: Normal [place] Farmer Required: No Beliefs That Will Affect Care: None marital status: Current Living Situation: Spouse Current Living Situation Comment: Lives w/ current occupational status: retired How many Children do You have: 1 Feels Safe at Home: Yes Childhood Exposure to Second-Hand Smoke: Yes caffeine: No during the past year weight has: remained stable Dental Care, Regularly: Yes Physical Activity Frequency: Daily Seatbelt Use: always Sunscreen Use: Yes Assistive Devices: None Review of Systems A total of 10 systems reviewed and were otherwise negative Physical Exam Vital Signs Vital Signs - 24 hr 03/11/22 22:24 03/11/22 22:34 03/11/22 23:00 Temperature 37.1 C Temperature Source Oral Pulse Rate 110 H 115 H Pulse Rate [Left Radial] 115 H Pulse Rhythm Regular Pulse Rhythm [Left Radial] Regular Pulse Strength Normal Respiratory Rate 26 H 26 H 36 H Respiratory Effort / Characteristics Non-Labored Non-Labored Respiratory Depth Normal Normal Respiratory Pattern Regular Blood Pressure 136/85 108/75 Blood Pressure [Left Arm] 79/63 L Blood Pressure Mean 102 86 Blood Pressure Mean [Left Arm] 68 Blood Pressure Position Lying Blood Pressure Position [Left Arm] Lying Pulse Oximetry 94 97 98 Oxygen Delivery Method Room Air Room Air Sepsis Recent Fever Within 48 Hours No Sepsis New/Unexplained Change in Mental Status No Sepsis Action Taken by Nursing Physician Notified CONSTITUTIONAL/VITAL SIGNS: Reviewed / noted above. GENERAL: Non-toxic in appearance. INTEGUMENTARY: Warm, dry, and [place]. Patient skin color is jaundiced with a yellow to green discoloration. HEAD: Normocephalic. EYES: with scleral icterus or trauma. ENT/OROPHARYNX: clear and moist. LYMPHADENOPATHY/NECK: Is supple without lymphadenopathy or meningismus. RESPIRATORY: Clear to auscultation bilaterally. No increased work of breathing. CARDIOVASCULAR: Regular rate and rhythm. GI/ABDOMEN: Soft and nontender. Slightly distended. No organomegaly or pulsatile mass. EXTREMITIES: Warm and well perfused. Pedal edema. BACK: No CVA tenderness. NEUROLOGICAL: Intact without focal deficits. PSYCHIATRIC: normal affect. MUSCULOSKELETAL: Normally developed with good muscle tone. TRIAGE NURSING DOCUMENTATION REVIEWED. Course Administered Medications Sodium Chloride (Nss 1000ml) 2,000 mls @ 999 mls/hr IV .Q2H1M ONE Stop: 03/12/22 00:58 Last Admin: 03/11/22 23:14 Dose: 999 mls/hr Documented by: [id number] Medical Decision Making Differential Diagnosis The differential was considered includes acute myocardial infarction, acute coronary syndrome, myocarditis, pericarditis, pericardial effusions /tamponad, esophageal perforation, pulmonary embolism, pneumonia, pneumothorax, cardiomyopathy, congestive heart, anemia , COPD/asthma exacerbation. Medical Records Attestation: I reviewed the patient's medical records. Home Medications Current Medication List: was personally reviewed by me Laboratory Data Attestation: I reviewed the patient's lab results. Result diagrams: 03/11/22 22:21 03/11/22 22:21 Lab Results 03/11/22 03/11/22 03/11/22 Range/Units 22:21 22:21 22:21 WBC 3.68 L (4.8-10.8) K/uL RBC 3.24 L (4.7-6.1) M/uL Hgb 10.3 L (14.0-18.0) g/dL Hct 29.9 L (42-52) % MCV 92.3 (80-100) fL MCH 31.8 (25-34) pg MCHC 34.4 (32-36) g/dL RDW Std Deviation 68.8 H (36.4-46.3) fL RDW Coeff of Dixie 21.5 H (11.5-14.5) % Plt Count 496 H (130-400) K/uL MPV 10.8 H (7.4-10.4) fL Immature Gran % (Auto) 0.8 % Neut % (Auto) 75.8 % Lymph % (Auto) 13.6 % Elk % (Auto) 9.5 % Eos % (Auto) 0.0 % Baso % (Auto) 0.3 % Neut # (Auto) 2.79 (1.4-6.5) K/uL Lymph # (Auto) 0.50 L (1.2-3.4) K/uL Elk # (Auto) 0.35 (0.11-0.59) K/uL Eos # (Auto) 0.00 (0-0.5) K/uL Baso # (Auto) 0.01 (0-0.2) K/uL Immature Gran # (Auto) 0.03 H (0.00-0.02) K/uL Absolute Nucleated RBC 0.48 H (0-0) K/uL Nucleated RBC % (auto) 13.2 % Polychromasia 1+ Anisocytosis Present Target Cells 1+ Echinocytes 1+ PT 32.2 H (9.0-12.0) Seconds INR 3.2 H (0.9-1.1) APTT 46.8 H* (21.0-31.0) Seconds PTT Ratio 1.7 Sodium 139 (136-145) mmol/L Potassium 3.4 L (3.5-5.1) mmol/L Chloride 112 H (98-107) mmol/L Carbon Dioxide 10 L (21-32) mmol/L Anion Gap 17 H (3-11) BUN TNP Creatinine TNP Est Cr Clr Drug Dosing TNP Est GFR ( Amer) TNP Est GFR (Non-Af Amer) TNP BUN/Creatinine Ratio TNP Glucose 161 H (70-99(Fasting)) mg/dl Lactate Calcium 8.2 L (8.5-10.1) mg/dl Magnesium 1.9 (1.7-2.4) mg/dl Total Bilirubin 29.0 H (0.2-1.0) mg/dl AST 75 H (13-39) U/L ALT 48 (7-52) U/L Alkaline Phosphatase TNP Ammonia Troponin I High Sens 41.0 H (0-20) pg/ml Total Protein 5.0 L (6.0-8.3) gm/dl Albumin 2.4 L (3.4-5.0) gm/dl Globulin 2.6 (2.5-4.0) gm/dl Albumin/Globulin Ratio 0.9 (0.9-2) 03/11/22 03/11/22 Range/Units 22:21 22:21 WBC (4.8-10.8) K/uL RBC (4.7-6.1) M/uL Hgb (14.0-18.0) g/dL Hct (42-52) % MCV (80-100) fL MCH (25-34) pg MCHC (32-36) g/dL RDW Std Deviation (36.4-46.3) fL RDW Coeff of Dixie (11.5-14.5) % Plt Count (130-400) K/uL MPV (7.4-10.4) fL Immature Gran % (Auto) % Neut % (Auto) % Lymph % (Auto) % Elk % (Auto) % Eos % (Auto) % Baso % (Auto) % Neut # (Auto) (1.4-6.5) K/uL Lymph # (Auto) (1.2-3.4) K/uL Elk # (Auto) (0.11-0.59) K/uL Eos # (Auto) (0-0.5) K/uL Baso # (Auto) (0-0.2) K/uL Immature Gran # (Auto) (0.00-0.02) K/uL Absolute Nucleated RBC (0-0) K/uL Nucleated RBC % (auto) % Polychromasia Anisocytosis Target Cells Echinocytes PT (9.0-12.0) Seconds INR (0.9-1.1) APTT (21.0-31.0) Seconds PTT Ratio Sodium (136-145) mmol/L Potassium (3.5-5.1) mmol/L Chloride (98-107) mmol/L Carbon Dioxide (21-32) mmol/L Anion Gap (3-11) BUN Creatinine Est Cr Clr Drug Dosing Est GFR ( Amer) Est GFR (Non-Af Amer) BUN/Creatinine Ratio Glucose (70-99(Fasting)) mg/dl Lactate TNP Calcium (8.5-10.1) mg/dl Magnesium (1.7-2.4) mg/dl Total Bilirubin (0.2-1.0) mg/dl AST (13-39) U/L ALT (7-52) U/L Alkaline Phosphatase Ammonia TNP Troponin I High Sens (0-20) pg/ml Total Protein (6.0-8.3) gm/dl Albumin (3.4-5.0) gm/dl Globulin (2.5-4.0) gm/dl Albumin/Globulin Ratio (0.9-2) Imaging Data My Impression: Chest x-ray: Per my interpretation there is no acute disease. No pneumothorax or pneumonia. ECG Data Attestation: I personally reviewed and interpreted this ECG as follows: Additional Comments: Twelve-lead EKG: Per my interpretation shows a sinus rhythm at a rate of 115. Low voltage. No ST elevation. Normal QTC. MDM Narrative 71-year-old male presents to the ED with a chief complaint of shortness of breath. According to the , his shortness of breath and tachypnea started this evening. He was at his oncologist office earlier today and had some outpatient blood work and received some IV fluids because of concerns of dehydration. The patient is otherwise a poor historian. He is significantly jaundiced on exam. That is chronic. He has some abdominal distention related to ascites. That is also chronic. The patient's lungs are clear on my exam. He is tachypneic. He is also tachycardic. Afebrile. Oxygen saturations are 99%. Bedside ultrasound by myself of the heart does not reveal any obvious pe ricardial effusion although the twelve-lead EKG does show a sinus tach with low voltage. A VBG shows acidosis with a pH of 7.1 and a PCO2 of 29. The CBC did not show significant anemia. White blood cell count is 3.68. INR is 3.2. He is not on anticoagulation. Chemistry panel shows an anion gap of 17. Bicarb is 10. Glucose is 161. Bilirubin is 29. Troponin is elevated at 41. The patient's states that he normally does not breathe this fast. She feels uncomfortable with him going home. The patient will be seen by the hospitalist for further inpatient evaluation and care. His renal function test were sent out earlier to [facility] and are still pending as this is unable to be resulted secondary to the patient's jaundice. His ammonia level is also unable to be resulted.Lactic acid is also unable to be resulted. Impression & Plan Acute dyspnea, Tachypnea, Metabolic acidosis, Elevated troponin, Hyperbilirubinemia, Metastatic cancer Discharge Plan Visit Data Chief Complaint: Illness ED Provider: Denys Waite Discharge Problem: Acute dyspnea, Tachypnea, Metabolic acidosis, Elevated troponin, Hyperbilirubinemia, Metastatic cancer Patient Disposition: Being Evaluated by Hospitalist Forms Stand Alone Forms: [facility] [place] [address] Prescriptions Prescriptions: No Action omeprazole 20 mg tablet,delayed release (DR/EC) 20 mg PO DAILY Qty: 90 RF: 1 sildenafil [Viagra] 100 mg tablet 100 mg PO DAILY PRN (Reason: sexual activity) Qty: 10 RF: 3 (DME) compress.stocking,knee,reg,med Misc See Rx Instructions .ROUTE .MEDSUPPLY Qty: 2 RF: 0 triamcinolone acetonide 0.5 % cream 1 applic topical BID PRN (Reason: skin irritation) Qty: 60 RF: 1 diclofenac sodium [Voltaren] 1 % gel 2 g topical QID PRN (Reason: pain) Qty: 100 RF: 5 allopurinol 300 mg tablet 300 mg PO QAM RF: 0 Referrals Referrals: Blanca Shanks DO [Primary Care Provider] -
[2022-03-11 23:35] LABS: Base Excess VBG -18.2 mEq/L; HCO3 VBG 10 mmol/L; Oxygen Saturation VBG < 60.0 %; PCO2 VBG 29 mmHg (38-50); PO2 VBG 25 mmHg; pH VBG 7.13 (7.36-7.41)
[2022-03-11] MEDS ORDERED: CEFEPIME 2,000 MG/20 ML VIAL IV STA (23:45)
[2022-03-12] MEDS ORDERED: MoRPHine SULFATE 2 MG/ML CARP IV STA (00:05)
--- NOTE | 2022-03-12 01:10 | History & Physical Report ---
Date of Service March 12, 2022 Assessment & Plan (1) Tachypnea: Plan: Yan Tapia is a 71-year-old male with past medical history of metastatic cholangiocarcinoma with pulmonary mets, cirrhosis, prostate cancer, gout, GERD, dyslipidemia, hypertension who presented to [facility] due to shortness of breath and tachypnea. Metabolic acidosis Likely in the setting of metastatic cholangiocarcinoma, though he did have significant diarrhea since early this week, which may be contributing He did meet 2 out of 4 SIRS criteria, was hypotensive, and lactate unable to be measured Given cefepime 2 g IV x1 in ED continue until blood cultures negative x48 hours Start sodium bicarb 150 mEq in D5W at 100 cc/h calculated bicarb deficit of 359 mEq Continue Lomotil for diarrhea Admit to med telemetry Metastatic cholangiocarcinoma Follows with [facility] consult Dr. Kennedy Patient seems to be deteriorating significantly and prognosis is likely very poor Discussed with patient's at bedside that it may be reasonable to discuss those of care and potential transition to comfort focused approach She will consider and try to discuss with her tomorrow once he is more alert for now will continue with treatment as indicated Gout Continue home allopurinol Lumbar disc disease Continue home baclofen as needed for back spasms GERD Continue Protonix 40 mg p.o. daily DVT prophylaxis: Heparin SQ Diet: Regular, as tolerated Dispo: Admit to telemetry CODE STATUS: DNR/DNI, discussed with at bedside, reported patient has advanced directive (2) Metabolic acidosis: (3) Elevated troponin: (4) Hyperbilirubinemia: (5) Metastatic cancer: (6) Cholangiocarcinoma metastatic to liver: Plan: Pt seen/examined in conjunction with resident MD Tillman. Orders and plan of admission formulated with resident. 71 y/o m Hx HTN, HLD, metastatic cholangiocarcinoma with pulmonary mets, cirrhosis. Presented due to progressive dyspnea and tachypnea. He received a dose of morphine in the ER and become poorly responsive after. It did not appear to help his breathing. He was slightly tachycardic and hypotensive as well, without clear evidence of infection. Labs are notable for severe metabolic acidosis, renal impairment and LFT abnormalities including a bilirubin of 20, an INR of 6.3 and alk/phos 831. Hypotension worsened in the ER and did not respond to IVF. The pt's indicated that she would like to transition to comfort care. O/E General: Cachectic, jaundiced, elderly male with tachypnea and albored latoya athing. ENT: No erythema or exudates, no thrush Eyes: RODERICK, EOMI + icteric Head and neck: Normocephalic, atraumatic, No JVD Chest/heart: Nontender, S1,2, tachy, no murmurs, no gallops Lungs: CTAB, no wheezing or crackles Abdomen: Nontender, nondistended, BS+ Neuro: Appears to follow with eyes and moves all extrems. He is otherwise not communicative. Musculoskeletal: No joint inflammation Skin: No acute rashes or ulcers. Marked jaundice Extremities: No clubbing, cyanosis, edema A/P The pt has end-stage cholangiocarcinoma - recently stopped chemo and has indicated that a transition to comfort measures may be the best alternative. He will be placed on a morphine GTT. Additional medications and life-prolonging treatments will be stopped. She is aware his condition is likely critical Total time for this admission including review of labs, meds, imaging, records, discussion with pt's and ER attending - 44 min History of Present Illness Primary Care Provider: Blanca Shanks DO Yan Tapia is a 71-year-old male with past medical history of metastatic cholangiocarcinoma with pulmonary mets, cirrhosis, prostate cancer, gout, GERD, dyslipidemia, hypertension who presented to [facility] due to shortness of breath and tachypnea. History is obtained from the patient's at bedside, as the patient is somnolent after having received a dose of IV morphine he was reportedly appropriately responsive and talkative prior to this medication. She states that since the patient's chemotherapy last week, he has been progressively more short of breath and fatigue. Today, it seems to be at its worst. He visited his oncology office today and had outpatient blood work and given some IV fluids at that time. The patient has had nausea and diarrhea since early this week, his believes it seems to be associated to the oral sodium bicarbonate, whi ch was started recently at his oncologist's office. She states that he has not had any chest pain, palpitations, cough, fever, chills, vomiting, headache, dizziness, loss of consciousness. Work-up in the ED demonstrated metabolic acidosis with a bicarb of 10 and an anion gap of 17. His pH on VBG was found to be 7.13. His bilirubin was elevated to 29, which seems to be a chronic elevation. He did have a INR of 3.2. Also had mild troponin elevation to 41. EKG showed sinus tachycardia with no obvious signs of ischemia. BUNs/creatinine and lactate were unable to be performed due to icterus. Patient was relatively hypotensive, tachycardic, and tachypneic in the ED. He was saturating well on room air. He received cefepime 2 g x 1, sodium chloride 1 L bolus, morphine sulfate 2 mg IV x1. Blood cultures were drawn prior to antibiotic administration. Allergies Allergy/AdvReac Type Severity Reaction Status Date / Time ciprofloxacin AdvReac Intermediate stomach Verified 03/11/22 23:56 sickness, diarrhea Home Medications Medication Instructions Recorded Confirmed Type allopurinol 300 mg tablet 300 mg PO QAM 01/09/22 03/11/22 History triamcinolone acetonide 0.5 % 1 applic TOPICAL BID PRN #60 g 02/10/22 03/11/22 Rx topical cream omeprazole 20 mg tablet,delayed 20 mg PO DAILY #90 tab 02/17/22 03/12/22 Rx release baclofen 10 mg tablet 10 mg PO QID PRN 03/11/22 03/11/22 History diphenoxylate-atropine 2.5 1 tab PO QID PRN 03/11/22 03/11/22 History mg-0.025 mg tablet (Lomotil) lorazepam 1 mg tablet 1 mg PO HS PRN 03/11/22 03/12/22 History ondansetron HCl 8 mg tablet 8 mg PO Q8 PRN 03/11/22 03/12/22 History prochlorperazine maleate 10 mg 10 mg PO Q6 PRN 03/11/22 03/12/22 History tablet sodium bicarbonate 325 mg tablet 325 mg PO DAILY 03/11/22 03/12/22 History Past Med/Surg History Medical History Arthritis Degenerative disc disease Dyslipidemia Erectile dysfunction GERD (gastroesophageal reflux disease) History of brachytherapy History of prostate cancer History of prostate cancer "Rising PSA, pretreatment PSA 5.4 Status post ultrasound-guided biopsies revealing adenocarcinoma the prostate [place] 3+3, biopsy stage T2c Status post prostate seed implant as monotherapy with cesium 131 on 03/11/2014. 66 seeds were placed" History of squamous cell carcinoma of skin (05/2020) Hx of gout Hypertension Internal hemorrhoids Jaundice Jaundice Liver cirrhosis PT DENIES Liver masses Lumbar disc disease Osteoarthritis Rosacea Surgical History Fusion of spine LUMBAR History of carpal tunnel release (06/2021) History of esophagogastroduodenoscopy (EGD) History of liver biopsy Nausea and vomiting after administration of anesthetic agent Port-A-Cath in place (01/28/22) Access port placement. Dr. Trevino S/P carpal tunnel release RT Status post Mohs surgery (05/2020) L hand for SCC Status post Mohs surgery (~06/2021) R ear, required removal of tragus Family History Mother Diabetes Father No known health problems Other No family history of adverse response to anesthesia Denies family history of Ovarian cancer Prostate cancer Myocardial infarction Breast cancer Colorectal cancer Social History Smoking Status: Unknown if ever smoked Tobacco Type: Cigarettes Age Quit Using Tobacco: 58; packs per day: 0.25; Second Hand Exposure: Yes (IN THE PAST); Hx Alcohol Use: No Hx Substance Use: No Preferred Language: Faroese Communication Ability: Effective Visual Impairment: No Limitations Hearing Ability: Normal Senior Genetic Counselor Required: No Beliefs That Will Affect Care: None marital status: Current Living Situation: Spouse Current Living Situation Comment: Lives w/ current occupational status: retired How many Children do You have: 1 Other Information That Helps Us Care for You: No Feels Safe at Home: Yes Childhood Exposure to Second-Hand Smoke: Yes caffeine: No during the past year weight has: remained stable Dental Care, Regularly: Yes Physical Activity Frequency: Daily Seatbelt Use: always Sunscreen Use: Yes Assistive Devices: None Review of Systems Review of Systems: Per HPI Physical Exam Physical Exam: GENERAL: Somnolent. Cachectic. NAD. HEENT: PERRL, EOMI. Moist mucous membranes. NECK: No JVD. No lymphadenopathy. CHEST/LUNGS: Tachypneic. CTAB A/P. No crackles, wheezes, rales, rhonchi. HEART: Tachycardic, regular rhythm. No m/g/r. No carotid bruits. ABDOMEN: NT/ND, soft. BS+ x4 EXTREMITIES: No cyanosis, no clubbing, no edema SKIN: Severely jaundiced. Warm and dry. No rashes or lesions. NEUROLOGIC: Unable to fully assess due to patient's somnolence Results & Data Results & Data ([facility]) Vital Signs (Past 12 Hours) Vital Signs Temp Pulse Pulse Resp BP BP Pulse Ox 03/12/22 00:00 112 H 34 H 119/83 99 03/11/22 23:30 113 H 38 H 136/80 100 03/11/22 23:00 115 H 36 H 108/75 98 03/11/22 22:34 115 H 26 H 79/63 L 97 03/11/22 22:24 37.1 C 110 H 26 H 136/85 94 Resident Activity Tracking Resident Involvement: Resident Care Provided Care Provided: Adult Hospital Medicine
[2022-03-12] MEDS ORDERED: SODIUM CHLORIDE 0.9% 1000ML 1,000 ML IV ONE (02:33)
[2022-03-12] MEDS ORDERED: DIPHENOXYLATE/ATROPINE 2.5/0.025MG TAB PO PRN (02:33)
[2022-03-12] MEDS ORDERED: TRIAMCINOLONE ACET 0.5% CR 15 GM TUBE TOP PRN (02:33)
[2022-03-12] MEDS ORDERED: BACLOFEN 10 MG TAB PO PRN (02:33)
[2022-03-12] MEDS ORDERED: STAT IV STA (02:33)
[2022-03-12] MEDS ORDERED: LORazepam 1 MG TAB PO PRN (02:33)
[2022-03-12] MEDS ORDERED: PROCHLORPERAZINE MALEATE 10 MG TAB PO PRN (02:33)
[2022-03-12] MEDS ORDERED: MAGNESIUM HYDROXIDE SUSP 30 ML UDC PO PRN (02:33)
[2022-03-12] MEDS ORDERED: ONDANSETRON 4 MG OD TAB PO PRN (02:48)
[2022-03-12 03:19] VITALS: TEMP 97.3
[2022-03-12] MEDS ORDERED: SODIUM BICARBONATE 8.4% 150 MEQ in DEXTROSE 5% 1,000 ML IV SCH (03:45)
[2022-03-12 03:57] VITALS: O2SAT 96
[2022-03-12 04:08] VITALS: BP 98/36
[2022-03-12 04:27] LABS: Prothrombin Time 59.7 Seconds (9.0-12.0)
[2022-03-12] MEDS ORDERED: LORazepam 0.5 MG TAB PO PRN (04:34)
[2022-03-12] MEDS ORDERED: STAT IV Infusion **Titration per Protocol STA (04:34)
[2022-03-12] MEDS ORDERED: ONDANSETRON INJ 2 MG/ML 2 ML VIAL IV PRN (04:34)
[2022-03-12] MEDS ORDERED: ATROPINE SULFATE 1% OP SOLN 5 ML BTL SL PRN (04:34)
[2022-03-12] MEDS ORDERED: GLYCOPYRROLATE 0.2 MG/ML VIAL IV PRN (04:34)
[2022-03-12] MEDS ORDERED: ONDANSETRON 4 MG OD TAB SL PRN (04:34)
[2022-03-12] MEDS ORDERED: chlorproMAZINE HCL 25 MG TAB PO PRN (04:34)
[2022-03-12] MEDS ORDERED: HYOSCYAMINE SULFATE 0.125 MG TAB SL PRN (04:34)
[2022-03-12] MEDS ORDERED: LORazepam 0.5 MG in SYRINGE 0.25 ML IV PRN (04:34)
[2022-03-12 04:36] LABS: INR 6.2 (0.9-1.1)
[2022-03-12] MEDS ORDERED: MoRPHine SULF/NSS 100 MG/100 ML BAG IV SCH (04:45)
[2022-03-12 04:48] LABS: Albumin Globulin Ratio 0.9 (0.9-2); Albumin Level 1.8 gm/dl (3.4-5.0); BUN Creatinine Ratio 15.5 (10-20); Bilirubin,Total 22.9 mg/dl (0.2-1.0); Calcium 7.2 mg/dl (8.5-10.1); Creatinine Clr Calc Pharmacy 28.5 ml/min; Est GFR (African American) 34.3 ml/min; Est GFR (Non-African American) 29.6 ml/min; Globulin 2.1 gm/dl (2.5-4.0); Total Protein 3.9 gm/dl (6.0-8.3)
[2022-03-12 04:49] LABS: Potassium 4.3 mmol/L (3.5-5.1)
[2022-03-12 05:04] VITALS: PULSE 104
[2022-03-12 05:19] LABS: Hematocrit (blood only) 27.2 % (42-52); Hemoglobin 8.7 g/dL (14.0-18.0); Mean Corpuscular Hemoglobin 31.2 pg (25-34); Mean Corpuscular Volume 97.5 fL (80-100); Nucleated RBC # (auto) 2.68 K/uL (0-0); Nucleated RBC % (auto) 54.2 %; Platelet Count 416 K/uL (130-400); Red Blood Count 2.79 M/uL (4.7-6.1); White Blood Count 4.95 K/uL (4.8-10.8)
[2022-03-12 05:31] LABS: Anisocytosis Present; Basophils # (auto) 0.05 K/uL (0-0.2); Eosinophils # (auto) 0.02 K/uL (0-0.5); Eosinophils % (auto) 0.4 %; Immature Granulocytes # (auto) 0.07 K/uL (0.00-0.02); Immature Granulocytes % (auto) 1.4 %; Lymphocytes # (auto) 1.19 K/uL (1.2-3.4); Monocytes % (auto) 20.2 %; Neutrophils # (auto) 2.62 K/uL (1.4-6.5); Polychromasia 1+; Spherocytes 1+
--- NOTE | 2022-03-12 06:40 | Death Pronouncement Note ---
Date of Service March 12, 2022 Pronouncement Note Admission Date March 12, 2022 Date and Time of Date of : 03/12/22 Time of : 06:02 Preliminary Cause of (1) Metabolic acidosis: (2) Cholangiocarcinoma metastatic to liver: Additional Data Confirmation of : no pulse, no respirations, no heart sounds and pupils fixed and dilated Pronouncement Performed By: Resident Physician Family: at bedside Attending/PCP notified?: Yes (attending notified) Attending physician: Noman Estrada MD Was code activated?: No Autopsy requested?: No land law examiner notified?: No Organ bank notified?: No
[2022-03-12] MEDS ORDERED: SODIUM BICARBONATE 650 MG TAB PO SCH ×3 (09:00)
[2022-03-12] MEDS ORDERED: PANTOprazole 40 MG TAB PO SCH (09:00)
[2022-03-12] MEDS ORDERED: allopurinoL 300 MG TAB PO SCH (09:00)
[2022-03-12] MEDS ORDERED: HEPARIN SOD 5,000 UNIT/0.5 ML VIAL SQ SCH (09:00)
--- NOTE | 2022-03-12 09:14 | XRay Report ---
XR chest 1V portable CLINICAL HISTORY: SEPSIS TECHNIQUE: Single frontal radiograph of the chest was obtained. Comparison: Comparison is made to chest radiograph 01/28/2022 FINDINGS: A port catheter is seen. The cardiomediastinal silhouette is normal. Lungs are underinflated but anant r. No evidence of pleural effusion or pneumothorax. IMPRESSION: No acute chest disease. ACT 112: Negative or not required by law. Electronically signed by: Bharath Moran M.D. 03/12/2022 9:13 AM
[2022-03-12] MEDS ORDERED: CEFEPIME 2,000 MG in SYRINGE 0 ML IV SCH (12:00)
[2022-03-12 12:10] LABS: A calco-baum cmplx NotReported Not Detected (NotDetected); Bact fragilis Not Reported Not Detected (NotDetected); C auris Not Reported Not Detected (NotDetected); CTX-M Resistant Gene Not Detected (NotDetected); Calbicans Not Reported Not Detected (NotDetected); Candida glabrata Not Reported Not Detected (NotDetected); Candida krusei Not Reported Not Detected (NotDetected); Cneoformans/gatti Not Reported Not Detected (NotDetected); Cparapsilosis Not Reported Not Detected (NotDetected); Ctropicalis Not Reported Not Detected (NotDetected); E cloacae compx Not Reported Not Detected (NotDetected); Efaecalis Not Reported Not Detected (NotDetected); Efaecium Not Reported Not Detected (NotDetected); Enterobacterales DETECTED (NotDetected); Enterobacterales Not Reported DETECTED (NotDetected); Escherichia coli Not Reported Not Detected (NotDetected); H influenzae Not Reported Not Detected (NotDetected); IMP Resistant Gene Not Detected (NotDetected); K aerogenes Not Reported Not Detected (NotDetected); KPC Resistant Gene Not Detected (NotDetected); Koxytoca Not Reported Not Detected (NotDetected); Kpneumoniae grp Not Reported Not Detected (NotDetected); Lmonocyt Not Reported Not Detected (NotDetected); N meningitidis Not Reported Not Detected (NotDetected); NDM Resistant Gene Not Detected (NotDetected); OXA 48 Like Resistant Gene Not Detected (NotDetected); P aeruginosa Not Reported Not Detected (NotDetected); Proteus spp Not Reported Not Detected (NotDetected); Salmonella spp Not Reported DETECTED (NotDetected); Smarcescens Not Reported Not Detected (NotDetected); Staph lugdunensis Not Reported Not Detected (NotDetected); Staph spp. Not Reported Not Detected (NotDetected); Staphaureus Not Reported Not Detected (NotDetected); Staphepi Not Reported Not Detected (NotDetected); Stenmaltophilia Not Reported Not Detected (NotDetected); Strep agal(GrpB) Not Reported Not Detected (NotDetected); Strep pneum Not Reported Not Detected (NotDetected); Strep pyog (GrpA) Not Reported Not Detected (NotDetected); Strep spp Not Reported Not Detected (NotDetected); VIM Resistant Gene Not Detected (NotDetected); mcr-1 Colistin Resistant Gene Not Detected (NotDetected)
[2022-03-12 12:48] LABS: Salmonella species DETECTED (NotDetected)
--- NOTE | 2022-03-14 09:16 | Electrocardiogram Report ---
Test Reason : Blood Pressure : / mmHG Vent. Rate : 118 BPM Atrial Rate : 118 BPM P-R Int : 138 ms QRS Dur : 084 ms QT Int : 364 ms P-R-T Axes : 059 -06 043 degrees QTc Int : 510 ms Sinus tachycardia Low voltage QRS Cannot rule out Anterior infarct , age undetermined Nonspecific T wave abnormality Abnormal ECG When compared with ECG of 28-JAN-2022 11:15, Premature ventricular complexes are no longer Present Nonspecific T wave abnormality now evident in Lateral leads Confirmed by Masood Peng ([id number]) on 03/14/2022 9:15:51 AM Referred By: REFERRED SELF Confirmed By:Masood Peng
== END 2022-03-12 06:02 | disposition expired | DRG 641 ==
LOC: ED 22:01 → 2S 03-12 01:07